=== PATIENT | male | born 1945 | race Two or more races ===

== ENCOUNTER 2020-12-20 14:25 | Outpatient (REF) | payer MEDICARE, SELFPAY ==
[2020-12-20 15:25] LABS: MANUAL DIFF FLAG NO
[2020-12-20 15:29] LABS: Basophils Percent Auto 0.5 % (0-2); Eosinophils Absolute Auto 0.2 X10*3/uL (0.0-0.4); Eosinophils Percent Auto 3.4 % (0-4); Hematocrit 35.6 % (42-52); Hemoglobin 12.5 g/dl (14.0-18.0); Imm Gran Abs Auto 0.02 X10*3/uL (0.00-0.03); Imm Gran Pct Auto 0.3 % (0.0-0.4); Lymphocytes Absolute Auto 2.4 X10*3/uL (1.2-4.9); Lymphocytes Percent Auto 38.7 % (20-40); Mean Corpuscular HGB Conc 35.1 g/dl (31.0-36.0); Mean Corpuscular Hemoglobin 33.1 pg (27.0-33.0); Mean Corpuscular Volume 94.2 fL (80-98); Mean Platelet Volume 9.5 fL (9.4-12.4); Monocytes Absolute Auto 0.9 X10*3/uL (0.1-1.2); Monocytes Percent Auto 13.8 % (2-11); Neutrophils Absolute Auto 2.7 X10*3/uL (2.0-8.3); Neutrophils Percent Auto 43.3 % (45-73); Platelet Count 208 X10*3/uL (160-400); Red Blood Count 3.78 X10*6/uL (4.60-5.80); Red Cell Distribution Width 12.4 % (11.0-16.0); White Blood Count 6.2 X10*3/uL (4.8-10.8)
[2020-12-20 16:13] LABS: Alanine Aminotransferase 30 U/L (0-40); Albumin Level 4.1 g/dL (3.5-5.0); Alkaline Phosphatase 110 U/L (39-117); Anion Gap 14 (12-20); Aspartate Amino Transferase 55 U/L (5-37); Blood Urea Nitrogen 19 mg/dL (9-16); Calcium 9.5 mg/dL (8.4-10.2); Carbon Dioxide 22 mmol/L (22-29); Chloride 110 mmol/L (96-108); Estimated Glomerular Filt Rate > 60; Glucose Random 64 mg/dL (60-115); Iron 130 mcg/dL (45-160); Percent Iron Saturation 48 % (15-50); Potassium 4.5 mmol/L (3.3-5.1); Sodium 141 mmol/L (135-145); Total Iron Binding Capacity 270 mcg/dL (228-428); Unsaturated Iron Binding 140 ug/dL
[2020-12-20 16:34] LABS: Ferritin 188 ng/mL (20-250); Thyroid Stimulating Hormone 0.03 uIU/mL (0.32-4.0)
== END 2020-12-20 14:26 | disposition home or self-care (01) ==
LOC: HO.LAB 14:25
PROVIDERS: PCP Internal Medicine; Referring Provider Internal Medicine; Visit Provider Physician Assistant
DX: R10.11 Right upper quadrant pain (principal); D64.9 Anemia, unspecified; K59.09 Other constipation; K62.5 Hemorrhage of anus and rectum; R19.5 Other fecal abnormalities; K64.9 Unspecified hemorrhoids; K21.9 Gastro-esophageal reflux disease without esophagitis; F10.10 Alcohol abuse, uncomplicated
CPT/HCPCS: 36415; 80053; 82378; 82728; 83540; 84443; 85025; 99202

== ENCOUNTER → 2021-10-17 11:36 | Outpatient (BNVA) | payer MEDICARE, SELFPAY | PROVIDERS: PCP Nurse Practitioner Primary Care; Visit Provider Internal Medicine | DX: E05.90 Thyrotoxicosis, unspecified without thyrotoxic crisis or storm (principal) | CPT/HCPCS: Q3014 ==

== ENCOUNTER 2021-10-18 15:54 | Outpatient (REF) | payer MEDICARE, SELFPAY ==
[2021-10-18 17:08] LABS: Free T4 (Free Thyroxine) 1.09 ng/dL (0.71-1.85); Thyroid Stimulating Hormone 0.01 uIU/mL (0.32-4.0)
[2021-10-19 22:27] LABS: Triiodothyronine T3 Total 148 ng/dL (76-181)
[2021-10-21 17:26] LABS: Thyroid Peroxidase Antibodies 13 IU/mL (<9)
[2021-10-22 02:57] LABS: Thyroglobulin Antibodies 3 IU/mL (< or = 1)
[2021-10-23 15:02] LABS: Thyroid Stimulating Immunoglob <89 % baseline (<140)
[2021-10-24 19:16] LABS: Thyrotropin Receptor Antibody 1.76 IU/L (<=2.00)
== END 2021-10-18 15:55 | disposition home or self-care (01) ==
LOC: HO.LAB 15:54
PROVIDERS: PCP Internal Medicine; Visit Provider Internal Medicine
DX: E05.90 Thyrotoxicosis, unspecified without thyrotoxic crisis or storm (principal)
CPT/HCPCS: 36415; 83520; 84439; 84443; 84445; 84480; 86376; 86800

== ENCOUNTER 2022-05-16 11:36 | Outpatient (REF) | payer OTHER, SELFPAY ==
--- NOTE | ~2022-05-16 | CT_ITS ---
EXAMINATION: CT INTERNAL AUDITORY CANALS WITH CONTRAST CLINICAL INFORMATION: 77-year-old with jaw pain. COMPARISON: None TECHNIQUE: Volumetric multidetector CT imaging of the temporal bones was performed following the administration of 85 mL of Omnipaque 350 intravenous contrast with 2-D multiplanar reformatted reconstructions. This CT examination was performed using dose optimization techniques as appropriate, variously including the following: *Automated exposure control *Adjustment of mA and/or kV according to patient size (this includes techniques or standardized protocols for targeted exams where dose is matched to indication/reason for exam; i.e. extremities or head) *Use of iterative reconstruction technique DLP: 134 mGy-cm FINDINGS: Right Temporal Bone: There is complete opacification of the right mastoid, including the mastoid antrum. There are foci of radiolucency within the tegmen tympani and tegmen mastoideum, with the largest of these measuring 4 mm. These most likely reflect foci of inflammatory deossification and/or erosion. Cannot exclude dehiscence and therefore an encephalocele cannot be excluded. The scutum may be slightly eroded. There is near-complete opacification of the middle ear cavity. The body of the incus, head and neck of the malleus are visualized. The manubrium of the malleus, long process of incus and stapes are not visualized and may be eroded. The floor of the tympanic segment of the facial nerve canal is not visualized and may be dehiscent or eroded. Otherwise, the otic capsule appears grossly intact. There is a normal appearance to the oval window. The tympanic membrane is not visualized. Soft tissue opacity extends lateral to the expected plane of the TM. The above findings could reflect a cholesteatoma with associated otomastoid inflammatory disease. The cochlea and vestibular labyrinthine structures, IAC and vestibular aqueduct appear intact and within normal limits. There is a high jugular bulb with possible focal jugular plate dehiscence along the posterior wall of the tympanic annulus. Left Temporal Bone: Mastoid portion of the left temporal bone is well pneumatized and clear, with grossly intact bony ayala. The EAC is patent and normal in caliber. Tympanic membrane appears grossly intact. Middle ear cavity is unopacified. The ossicular chain is structurally within normal limits and appears intact. The oval window is normal. The otic capsule appears grossly intact. The cochlear and vestibular labyrinthine structures, IAC and vestibular aqueduct are within normal limits. CT IACs: The internal auditory canals demonstrate no definite enhancing mass lesion on either side. The visualized cerebellopontine angle cisterns demonstrate no definite mass lesion or abnormal enhancement. The remainder of the visualized intracranial structures demonstrate no acute process. There is normal opacification of the visualized major dural venous sinuses. The visualized extracranial soft tissue structures demonstrate asymmetry of the parotid glands, with the appearance of a large mass involving the superficial and deep lobes of the right parotid gland, measuring approximately 4 cm greatest transverse dimension. MRI of the soft tissue neck without and with contrast recommended to further assess this. CT/CT internal auditory canals BI IMPRESSION: 1. Large enhancing mass in the right parotid gland as discussed above, highly suspicious for a parotid neoplasm. MRI of the soft tissue neck without and with contrast is recommended to further assess this in addition to ENT consult. 2. Findings in the right temporal bone are consistent with otomastoiditis, with multiple erosions. Cannot exclude cholesteatoma. Cannot exclude dehiscence of the tegmen tympani/tegmen mastoideum. Thin section high-resolution T2-weighted imaging through this region can be added to the recommended MRI to further assess this if clinically warranted. Recommend that this be specifically requested in the order for the MRI if clinically warranted. 3. High jugular bulb on the right with a small dehiscence in the jugular plate. The [facility] staff will call to confirm receipt of this report with acknowledgement of the findings and any recommendations.
[2022-05-16] MEDS: iohexoL 350 MG/ML 100 ML INFUS..BTL 85 ML IV (13:01)
== END 2022-05-16 11:37 | disposition home or self-care (01) ==
LOC: HO.CT 11:36
PROVIDERS: PCP Internal Medicine; Visit Provider Internal Medicine
DX: R68.84 Jaw pain (principal); R22.0 Localized swelling, mass and lump, head; H70.001 Acute mastoiditis without complications, right ear; H66.91 Otitis media, unspecified, right ear
CPT/HCPCS: 70480; Q9967

== ENCOUNTER 2022-05-28 11:04 | Outpatient (REF) | payer OTHER, SELFPAY ==
--- NOTE | ~2022-05-28 | MR_ITS ---
EXAMINATION: MRI NECK WITHOUT AND WITH CONTRAST CLINICAL INFORMATION: Mass of right parotid gland. COMPARISON: CT temporal bones 05/16/2022. TECHNIQUE: Multiplanar multisequence MRI of the neck was performed without and with contrast. A total of 5.5 mL Gadavist was intravenously administered. FINDINGS: There is a heterogeneous multilobulated enhancing mass involving the superficial and deep lobe of the right parotid gland measuring up to 3.8 x 3.0 x 2.6 cm. The lesion appears thinly encapsulated. The deep aspect of the lesion partly deforms the parapharyngeal fat without causing displacement. No definite erosion is seen involving the mandibular ramus in the region where it contacts the lesion. The left parotid gland appears normal. The bilateral submandibular glands appear normal. No enlarged cervical chain lymph nodes are seen. Incidentally noted is opacification of the right mastoid and middle ear cavity, better defined on the recent CT. The pharyngeal and laryngeal contours appear normal. The cervical spine is intact with minimal degenerative changes noted. No acute intracranial abnormality is seen. The major arterial flow voids are preserved at the skull base. A small amount of fluid in left mastoid. Orbital contents are unremarkable. MR/MR orbits face neck wo/w con IMPRESSION: Heterogeneously enhancing multilobulated mass involving the superficial and deep lobe of the right parotid gland measuring up to 3.8 cm. This parotid lesion may represent a Warthin's tumor although benign or low-grade malignant salivary epithelial neoplasm can have a similar appearance. If not already performed ENT evaluation and possible fine needle aspiration sampling under ultrasound guidance could be considered. No cervical chain lymphadenopathy is seen.
== END 2022-05-28 11:05 | disposition home or self-care (01) ==
LOC: HO.MRI 11:04
PROVIDERS: PCP Internal Medicine; Visit Provider Internal Medicine
DX: K11.8 Other diseases of salivary glands (principal)
CPT/HCPCS: 70543; A9585

== ENCOUNTER 2022-06-04 12:13 | Outpatient (REF) | payer OTHER, SELFPAY ==
--- NOTE | ~2022-06-04 | XR_ITS ---
EXAMINATION: XR shoulder RT min 2V CLINICAL INFORMATION: Reason for Exam RIGHT SHOULDER PAIN COMPARISON: None TECHNIQUE: Four views of the shoulder. FINDINGS: No acute fracture or dislocation. Mild degenerative changes of the acromioclavicular joint with degenerative spurring. Soft tissues are unremarkable. XR/XR shoulder RT min 2V IMPRESSION: * Mild degenerative changes of the shoulder.
== END 2022-06-04 12:14 | disposition home or self-care (01) ==
LOC: HO.XRAY 12:13
PROVIDERS: PCP Internal Medicine; Visit Provider Internal Medicine
DX: M25.511 Pain in right shoulder (principal)
CPT/HCPCS: 73030

== ENCOUNTER 2022-07-07 14:50 | Outpatient (REF) | payer OTHER, SELFPAY ==
--- NOTE | ~2022-07-07 | US_ITS ---
EXAMINATION: US THYROID CLINICAL INFORMATION: Thyrotoxicosis, unspecified without thyrotoxic crisis or storm. COMPARISON: MRI neck 05/28/2022. Thyroid ultrasound 10/11/2018. MRA neck 02/08/2007. TECHNIQUE: Linear transducer grayscale and color Doppler examination with attention to the region of the thyroid. FINDINGS: SIZE: Measurements of the thyroid lobes and nodules are given in sagittal, anteroposterior and transverse dimensions respectively. Right Thyroid Lobe: 3.6 x 1.4 x 1.3 cm, volume 3.4 mL. Previously 4.4 x 1.4 x 1.3 cm, volume 4.3 mL. Parenchyma: The gland echotexture is heterogeneous. Thyroid vascularity is increased. Left Thyroid Lobe: 3.5 x 1.4 x 1.4 cm, volume 3.6 mL. Previously 3.7 x 1.4 x 1.2 cm, volume 3.4 mL. Parenchyma: The gland echotexture is heterogeneous. Thyroid vascularity is increased. Isthmus: 0.1 cm in maximum AP dimension. Previously 0.1 cm. No focal thyroid nodule is seen. NODES: No lymphadenopathy is seen in the tissue surrounding the thyroid gland. US/US thyroid IMPRESSION: Slightly heterogeneous and hypervascular thyroid lobes but no new nodules seen. No abnormal lymph nodes either. ACR TI-RADS RECOMMENDATION REFERENCE: Ultrasound-guided fine-needle aspiration, followup ultrasound, no further follow up. * TR1 (0 point) and TR2 (2 points): No FNA or follow up * TR3 (3 points): FNA if more than or equal to 2.5 cm in maximum dimension, followup ultrasound in 1, 3 and 5 years if 1.5 to 2.4 cm in maximum dimension. * TR4 (4-6 points): FNA if more than or equal to 1.5 cm in maximum dimension, followup ultrasound in 1, 2, 3 and 5 years if 1 to 1.4 cm in maximum dimension. * TR5 (more than or equal to 7 points): FNA if more than or equal to 1 cm in maximum dimension, followup ultrasound every year for 5 years if 0.5 to 0.9 cm in maximum dimension. * TR3, TR4 or TR5 nodules that are below the size threshold for follow up receive no follow up.
== END 2022-07-07 14:51 | disposition home or self-care (01) ==
LOC: HO.US 14:50
PROVIDERS: PCP Internal Medicine; Visit Provider Internal Medicine
DX: E05.90 Thyrotoxicosis, unspecified without thyrotoxic crisis or storm (principal)
CPT/HCPCS: 76536

== ENCOUNTER → 2022-07-17 10:04 | Outpatient (REF) | payer OTHER, SELFPAY ==
--- NOTE | ~2022-07-17 | NM_ITS ---
EXAMINATION: THYROID UPTAKE AND SCAN CLINICAL INFORMATION: Hyperthyroidism. COMPARISON: Prior thyroid scan and radioiodine uptake study done on 10/13/2018. Thyroid ultrasound done on 07/07/2022. TECHNIQUE: Following the oral administration of 273 microcuries of I-123 sodium iodide, thyroid uptake was performed and expressed as a percentage of the administrated dose. Gamma scintillation camera images of the thyroid in the anterior and right and left anterior oblique views were obtained using a pinhole collimator following the administration of 10 mCi Tc-99m pertechnetate. FINDINGS: The uptake is 4.09% at 4 hours, 3.1% on the prior study and 14.0% at 24 hours, 15.2% on the prior study (Normal radioiodine uptake at 24 hours is 10% to 30%). The radioiodine uptake is normal. The radiopertechnetate thyroid scintigram demonstrates the thyroid gland to be normal in size, shape, and position. There is slight heterogeneous distribution of activity within the the gland with no focal abnormalities noted. The trapping function appears normal. NM/NM thyroid w uptake IMPRESSION: 1. Normal radioiodine uptake, unchanged since prior study dated 10/13/2018. 2. Persistent stable mild heterogeneous radiotracer distribution throughout both thyroid gland without any significant change since the prior study dated 10/13/2018, considered within normal range, concordant with recent thyroid ultrasound done on 07/07/2022.
== END ==
LOC: HO.NUCMED 10:04
PROVIDERS: PCP Internal Medicine; Visit Provider Internal Medicine
DX: E05.90 Thyrotoxicosis, unspecified without thyrotoxic crisis or storm (principal)
CPT/HCPCS: 78014; A9512; A9516

== ENCOUNTER 2022-07-25 13:17 | Outpatient (REF) | payer OTHER, SELFPAY ==
[2022-07-25 14:46] LABS: Free T4 (Free Thyroxine) 1.14 ng/dL (0.71-1.85); Thyroid Stimulating Hormone < 0.01 uIU/mL (0.32-4.0)
[2022-07-26 19:54] LABS: Triiodothyronine T3 Total 178 ng/dL (76-181)
== END 2022-07-25 13:18 | disposition home or self-care (01) ==
LOC: HO.LAB 13:17
PROVIDERS: PCP Internal Medicine; Visit Provider Internal Medicine
DX: E05.90 Thyrotoxicosis, unspecified without thyrotoxic crisis or storm (principal)
CPT/HCPCS: 36415; 84439; 84443; 84480

== ENCOUNTER 2022-08-18 15:36 | Outpatient (REF) | payer MEDICARE, SELFPAY ==
[2022-08-18 17:24] LABS: Free T4 (Free Thyroxine) 1.03 ng/dL (0.71-1.85)
[2022-08-19 08:53] LABS: Triiodothyronine T3 Total 161 ng/dL (76-181)
== END 2022-08-18 15:37 | disposition home or self-care (01) ==
LOC: HO.LAB 15:36
PROVIDERS: PCP Internal Medicine; Visit Provider Internal Medicine
DX: E05.90 Thyrotoxicosis, unspecified without thyrotoxic crisis or storm (principal)
CPT/HCPCS: 36415; 84439; 84480

== ENCOUNTER 2022-09-15 13:45 | Outpatient (REF) | payer MEDICARE, SELFPAY ==
[2022-09-15 16:45] LABS: Free T4 (Free Thyroxine) 1.06 ng/dL (0.71-1.85); Thyroid Stimulating Hormone < 0.01 uIU/mL (0.32-4.0)
[2022-09-17 04:03] LABS: Triiodothyronine T3 Total 157 ng/dL (76-181)
== END 2022-09-15 13:46 | disposition home or self-care (01) ==
LOC: HO.LAB 13:45
PROVIDERS: Visit Provider Internal Medicine
DX: E05.90 Thyrotoxicosis, unspecified without thyrotoxic crisis or storm (principal)
CPT/HCPCS: 36415; 84439; 84443; 84480; 99212

== ENCOUNTER 2022-12-09 12:37 | Outpatient (REF) | payer MEDICARE, SELFPAY ==
[2022-12-09 14:47] LABS: Free T4 (Free Thyroxine) 0.94 ng/dL (0.71-1.85); Thyroid Stimulating Hormone 0.01 uIU/mL (0.32-4.0)
[2022-12-10 07:49] LABS: Triiodothyronine T3 Total 164 ng/dL (76-181)
== END 2022-12-09 12:38 | disposition home or self-care (01) ==
LOC: HO.LAB 12:37
PROVIDERS: PCP Internal Medicine; Visit Provider Internal Medicine
DX: E05.90 Thyrotoxicosis, unspecified without thyrotoxic crisis or storm (principal)
CPT/HCPCS: 36415; 84439; 84443; 84480

== ENCOUNTER 2023-03-23 16:10 | Outpatient (AMB) | payer MEDICARE, SELFPAY ==
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
[2023-03-23 16:13] VITALS: BP 134/58; PULSE 63; BMI 23.8
== END 2023-03-23 16:38 | disposition home or self-care (01) ==
PROVIDERS: PCP Internal Medicine; Visit Provider Internal Medicine Endocrinology, Diabetes & Metabolism
DX: E05.90 Thyrotoxicosis, unspecified without thyrotoxic crisis or storm (principal)
CPT/HCPCS: 99213

== ENCOUNTER → 2023-03-23 16:10 | Outpatient (BNVA) | payer MEDICARE, SELFPAY | PROVIDERS: PCP Internal Medicine; Visit Provider Internal Medicine Endocrinology, Diabetes & Metabolism | DX: E05.90 Thyrotoxicosis, unspecified without thyrotoxic crisis or storm (principal); E89.0 Postprocedural hypothyroidism | CPT/HCPCS: 99212 ==

== ENCOUNTER 2023-03-25 12:56 | Outpatient (REF) | payer MEDICARE, SELFPAY ==
[2023-03-25 13:08] LABS: MANUAL DIFF FLAG NO
[2023-03-25 14:02] LABS: Basophils Percent Auto 0.5 % (0-2); Eosinophils Absolute Auto 0.1 X10*3/uL (0.0-0.4); Eosinophils Percent Auto 1.9 % (0-4); Hematocrit 40.2 % (42.0-52.0); Hemoglobin 14.1 g/dl (14.0-18.0); Imm Gran Abs Auto 0.01 X10*3/uL (0.00-0.03); Imm Gran Pct Auto 0.2 % (0.0-0.4); Lymphocytes Absolute Auto 1.7 X10*3/uL (1.2-4.9); Lymphocytes Percent Auto 29.2 % (20-40); Mean Corpuscular HGB Conc 35.1 g/dl (31.0-36.0); Mean Corpuscular Volume 94.1 fL (80.0-98.0); Mean Platelet Volume 10.6 fL (9.4-12.4); Monocytes Absolute Auto 0.6 X10*3/uL (0.1-1.2); Monocytes Percent Auto 9.6 % (2-11); Neutrophils Absolute Auto 3.4 x10*3/uL (2.0-8.3); Neutrophils Percent Auto 58.6 % (45-73); Platelet Count 211 X10*3/uL (160-400); Red Blood Count 4.27 X10*6/uL (4.60-5.80); Red Cell Distribution Width 13.3 % (11.0-16.0); White Blood Count 5.9 X10*3/uL (4.8-10.8)
[2023-03-25 14:45] LABS: Alanine Aminotransferase 53 U/L (0-40); Albumin Level 3.8 g/dL (3.5-5.0); Alkaline Phosphatase 268 U/L (39-117); Aspartate Amino Transferase 118 U/L (5-37); Bilirubin Direct 0.8 mg/dL (0.0-0.5); Bilirubin Total 1.3 mg/dL (0.0-1.0); Total Protein 8.4 g/dL (6.5-8.0)
[2023-03-25 14:51] LABS: Free T4 (Free Thyroxine) 0.86 ng/dL (0.71-1.85); Thyroid Stimulating Hormone 0.15 uIU/mL (0.32-4.0)
[2023-03-26 10:03] LABS: Triiodothyronine T3 Free 3.9 pg/mL (2.3-4.2)
== END 2023-03-25 12:57 | disposition home or self-care (01) ==
LOC: HO.LAB 12:56
PROVIDERS: PCP Internal Medicine; Visit Provider Internal Medicine Endocrinology, Diabetes & Metabolism
DX: E05.90 Thyrotoxicosis, unspecified without thyrotoxic crisis or storm (principal)
CPT/HCPCS: 36415; 80076; 84439; 84443; 84481; 85025

== ENCOUNTER 2023-04-01 13:29 | Outpatient (REF) | payer MEDICARE, SELFPAY ==
--- NOTE | ~2023-04-01 | MR_ITS ---
EXAMINATION: MR SOFT TISSUE NECK WITHOUT AND WITH CONTRAST CLINICAL INFORMATION: Follow up right parotid mass. COMPARISON: 05/28/2022 MRI. TECHNIQUE: MRI of the soft tissue neck was obtained using routine sequences without and with contrast. Intravenous contrast: Gadavist 6 mL. (Note that coronal T1-weighted imaging pre- and postcontrast was not performed on this exam which somewhat limits the exam. The DWI sequence is also marred by artifact.) FINDINGS: Redemonstrated is a well-circumscribed, lobulated soft tissue mass within the right parotid gland which spans the superficial and deep lobes of the gland. This measures 3.6 cm in greatest craniocaudal dimension in the sagittal plane, stable in appearance with maximum transaxial dimensions of 3.4 x 2.2 cm, largely stable in appearance compared to previous study. The mass is noted to be heterogeneously T2 hyperintense on T2 fat-sat imaging, similar to the previous study with a few small foci of signal loss at its posteromedial aspect, similar to prior exam. The mass enhances fairly avidly and mostly homogenously, grossly unchanged. There is mild encroachment on the lateral aspect of the right parapharyngeal fat stripe which is unchanged. Left parotid gland appears normal in morphology and signal intensity. The submandibular glands are normal in morphology and enhance normally. No enlarged lymph nodes are seen along the cervical chains. Redemonstrated is fluid signal within the right mastoid and middle ear cavity, unchanged. There is limited assessment of the intracranial compartment. There is enhancement of soft tissue within the right mastoid, unchanged. No definite abnormal intracranial enhancement is seen. The nasopharynx, retropharynx, web merchant, and parapharyngeal spaces appear otherwise unremarkable with a normal appearance to the oropharynx, tongue and floor of the mouth structures. The hypopharynx and larynx appear grossly within normal limits. Visualized thyroid gland is not enlarged. Visualized upper thorax is grossly unremarkable. Normal signal voids are seen within the major arterial and venous structures in the neck. MR/MR orbits face neck wo/w con IMPRESSION: 1. Stable appearance to the right parotid gland mass, as described above. Differential diagnostic considerations again would include a Warthin's tumor, but a malignant salivary gland tumor cannot be excluded. Recommend tissue sampling and ENT follow-up. 2. No enlarged cervical lymph nodes. No definite abnormal intracranial enhancement is seen. 3. Stable enhancing fluid signal in the right mastoid and middle ear cavity. Correlate for clinical otologic disease on the right.
[2023-04-01] MEDS: gadobutroL 7.5 ML VIAL IVPUSH (14:39)
== END 2023-04-01 13:30 | disposition home or self-care (01) ==
LOC: HO.MRI 13:29
PROVIDERS: Visit Provider Internal Medicine
DX: R22.0 Localized swelling, mass and lump, head (principal); K11.8 Other diseases of salivary glands
CPT/HCPCS: 70543; A9585

== ENCOUNTER 2023-07-14 18:40 | Inpatient (IN) | payer MEDICARE, SELFPAY ==
--- NOTE | ~2023-07-14 | CT_ITS ---
EXAMINATION: CT ABDOMEN AND PELVIS WITH CONTRAST CLINICAL INFORMATION: Abdominal pain. Jaundice. COMPARISON: None available. TECHNIQUE: Multidetector volumetric images were obtained from the superior aspect of the liver through the pubic symphysis following administration 85 mL of Omnipaque 350 intravenous contrast. Sagittal and coronal reformatted images were obtained on the technologist's workstation. Oral contrast: No This CT examination was performed using dose optimization techniques as appropriate, variously including the following: *Automated exposure control *Adjustment of mA and/or kV according to patient size (this includes techniques or standardized protocols for targeted exams where dose is matched to indication/reason for exam; i.e. extremities or head) *Use of iterative reconstruction technique DLP: 373 mGy-cm FINDINGS: LUNG BASES: The visualized lung bases are unremarkable. LIVER, GALLBLADDER, AND BILIARY TREE: The liver is significantly irregular in contour with a small right lobe. No focal liver lesions are seen. There is no intrahepatic biliary duct dilatation. The gallbladder is unremarkable with no evidence of radiopaque gallstones, gallbladder wall thickening, or obvious pericholecystic inflammatory changes. PANCREAS: Unremarkable. SPLEEN: A few splenic calcifications are noted. ADRENAL GLANDS: Unremarkable. KIDNEYS AND URETERS: The kidneys are normal in size, shape, and attenuation. No hydronephrosis, hydroureter, or calculi seen. No perinephric stranding. There is a 3.1 cm cyst mid to lower pole left kidney. There is a 1.5 cm cyst mid to upper pole left kidney. BLADDER: There is a 2.8 cm stellate bladder calcification. There is also a 6 mm calcification. GASTROINTESTINAL TRACT: There are a few diverticula of the sigmoid colon without diverticulitis. The appendix is normal in appearance. ABDOMINAL WALL: No significant hernia is appreciated. LYMPH NODES: Normal. VASCULAR: Splenic, perigastric and pelvic varices are noted. PELVIC VISCERA: Unremarkable. FLUID: There is small volume upper abdominal as well as pelvic ascites. OSSEOUS STRUCTURES: Unremarkable. CT/CT abdomen pelvis w IV con IMPRESSION: 1. Cirrhotic liver with evidence of portal hypertension including splenic, perigastric and pelvic varices. There is small volume ascites. 2. There is a 2.8 cm stellate bladder calcification. There is also a 6 mm calcification. Fleischner guidelines were followed.
--- NOTE | ~2023-07-14 | US_ITS ---
Ultrasound-guided liver biopsy History: Elevated LFTs Procedure: Ultrasound-guided liver biopsy Risks and benefits and possible complications were discussed with the patient and consent form was signed. The abdomen was prepped and draped in usual sterile fashion. 1% lidocaine was used for anesthesia. A 17-gauge coaxial needle was inserted through the skin and soft tissues and into the left lower of the liver. A total of 3, 18-gauge cores were performed. Permanent ultrasound images were archived. 2 Gelfoam torpedoes were inserted through the coaxial and administered into the biopsy tract and at the level of the capsule. The needle was then removed. The specimens were placed in formalin and sent to pathology. The patient tolerated the procedure well. The procedure was performed under moderate sedation with a dedicated nurse for monitoring of vital signs. The patient received a total of 2 Versed, and 100 Fentanyl. Moderate sedation time: 44 min This procedure was performed by Luis Velazquez PA-C, and directly supervised by Dr. Veloz. US/US biopsy liver Impression: Ultrasound-guided liver biopsy
[2023-07-14 19:12] VITALS: BP 136/57; PULSE 66; RESP 18; TEMP 36.5; O2SAT 99; BMI 23.0
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
[2023-07-14 19:45] LABS: Basophils Percent Auto 0.3 % (0-2); Eosinophils Absolute Auto 0.1 X10*3/uL (0.0-0.4); Eosinophils Percent Auto 0.6 % (0-4); Hematocrit 34.6 % (42.0-52.0); Hemoglobin 12.3 g/dl (14.0-18.0); Imm Gran Abs Auto 0.02 X10*3/uL (0.00-0.03); Imm Gran Pct Auto 0.2 % (0.0-0.4); Lymphocytes Absolute Auto 1.8 X10*3/uL (1.2-4.9); Lymphocytes Percent Auto 17.6 % (20-40); Mean Corpuscular HGB Conc 35.5 g/dl (31.0-36.0); Mean Corpuscular Hemoglobin 33.2 pg (27.0-33.0); Mean Corpuscular Volume 93.5 fL (80.0-98.0); Mean Platelet Volume 9.8 fL (9.4-12.4); Monocytes Absolute Auto 0.8 X10*3/uL (0.1-1.2); Monocytes Percent Auto 7.8 % (2-11); Neutrophils Absolute Auto 7.4 x10*3/uL (2.0-8.3); Neutrophils Percent Auto 73.5 % (45-73); Platelet Count 336 X10*3/uL (160-400); Red Cell Distribution Width 18.8 % (11.0-16.0); White Blood Count 10.1 X10*3/uL (4.8-10.8)
[2023-07-14 19:46] LABS: MANUAL DIFF FLAG NO
--- NOTE | 2023-07-14 19:52 | MHC.EDTECH ---
PATIENT BLOOD DRAWN AND SENT TO LAB ,PATIENT NOT ABLE TO GIVE URINE SAMPLE AT THIS TIME .
[2023-07-14 20:01] LABS: Alanine Aminotransferase 159 U/L (0-40); Albumin Level 2.6 g/dL (3.5-5.0); Alkaline Phosphatase 463 U/L (39-117); Anion Gap 15 (12-20); Aspartate Amino Transferase 405 U/L (5-37); Bilirubin Direct 7.7 mg/dL (0.0-0.5); Bilirubin Total 9.6 mg/dL (0.0-1.0); Blood Urea Nitrogen 14 mg/dL (9-16); Calcium 8.7 mg/dL (8.4-10.2); Carbon Dioxide 22 mmol/L (22-29); Chloride 103 mmol/L (96-108); Creatinine Clr Calc Pharmacy 51.8; Estimated Glomerular Filt Rate > 60; Glucose Random 121 mg/dL (60-115); Lipase 33 U/L (8-78); Magnesium 1.9 mg/dL (1.6-2.6); Potassium 4.2 mmol/L (3.3-5.1); Sodium 136 mmol/L (135-145); Total Protein 7.7 g/dL (6.5-8.0)
[2023-07-14 23:27] VITALS: BP 127/60; PULSE 63; RESP 16; TEMP 36.9; O2SAT 98
--- NOTE | 2023-07-14 23:31 | MHC.EDTECH ---
PATIENT WAS CALL TO TRIAGE TO REASSESS ,VITALS TAKEN .
--- NOTE | 2023-07-14 23:31 | MHC.EDTECH ---
PATIENT STILL NOT ABLE TO GIVE URINE SAMPLE .
[2023-07-14 23:56] LABS: Appearance Urine Cloudy; Color Urine Dark Yellow; Glucose Urine UA Negative (Negative); Leukocyte Esterase Urine Small (1+) (Negative); Nitrite Urine Positive (Negative); PH 5.5 (5.0-9.0); UMIC TRIGGER UACC YES; Urine Blood Negative (Negative); Urine Ketones Negative (Negative); Urine Protein Trace mg/dL (Neg-Trace)
[2023-07-15 00:18] LABS: Bacteria Urine None Seen (None Seen); Hyaline Casts Urine 0-2 /LPF (0-2); UACC Culture Trigger YES; WBC Urine 0-5 /HPF (0-5)
[2023-07-15 00:23] LABS: RBC Urine 0-2 /HPF (0-2)
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
[2023-07-15 01:49] LABS: INTERNATIONAL NORM RATIO 1.9 (0.9-1.1); Prothrombin Time 23.7 SEC (11.1-13.3)
[2023-07-15] MEDS: iohexoL 350 MG/ML 100 ML INFUS..BTL 85 ML IV (01:50)
[2023-07-15 01:55] LABS: Ammonia 47 umol/L (13-55)
[2023-07-15 02:14] LABS: Acetaminophen LAB < 3 mcg/mL (<30)
[2023-07-15 02:46] VITALS: BP 133/54; PULSE 75; RESP 18; TEMP 36.4; O2SAT 98
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
[2023-07-15] MEDS: methylPREDNISolone Sod Succ 40 MG/ML VIAL 32 MG IVPUSH (06:44)
[2023-07-15] MEDS: Lactulose 20 GM/30 ML SOLUTION PO ×4 (06:44→21:21)
[2023-07-15] MEDS: Pantoprazole Sodium 40 MG/10 ML VIAL IVPUSH (06:44)
[2023-07-15] MEDS: Thiamine HCL 200 MG in 0.9 % Sodium Chloride 100 ML 204 MG IV (06:45)
[2023-07-15] MEDS: 0.9 % Sodium Chloride 250 ML 999 ML IV (06:48)
[2023-07-15 07:10] LABS: Hematocrit 34.7 % (42.0-52.0); Hemoglobin 12.4 g/dl (14.0-18.0); Mean Corpuscular HGB Conc 35.7 g/dl (31.0-36.0); Mean Corpuscular Hemoglobin 33.2 pg (27.0-33.0); Mean Corpuscular Volume 92.8 fL (80.0-98.0); Mean Platelet Volume 9.8 fL (9.4-12.4); Platelet Count 351 X10*3/uL (160-400); Red Blood Count 3.74 X10*6/uL (4.60-5.80); Red Cell Distribution Width 18.6 % (11.0-16.0)
[2023-07-15 07:23] VITALS: BP 124/61; PULSE 70; RESP 16; TEMP 36.6; O2SAT 97
--- NOTE | 2023-07-15 07:29 | PC.NURSE ---
Medication administration delayed due to t/w providing care to other patients.
[2023-07-15 07:39] LABS: HBS Num1 2.31 mIU/mL (0-7.99); HBc Num1 0.55 S/CO (0.00-0.79); HBsAGNum1 0.41 S/CO (0.00-0.99); Hepatitis B Core Antibody Nonreactive (Nonreactive); Hepatitis B Surface Antigen Negative (Negative); ~HepC Num1 0.44 S/CO (0.00-0.79); ~Hepatitis B Surface Antibody NONREACTIVE (Nonreactive); ~Hepatitis C Antibody Nonreactive (Nonreactive)
[2023-07-15 07:39] LABS: Alanine Aminotransferase 161 U/L (0-40); Albumin Level 2.6 g/dL (3.5-5.0); Alkaline Phosphatase 467 U/L (39-117); Anion Gap 15 (12-20); Aspartate Amino Transferase 407 U/L (5-37); Bilirubin Total 9.4 mg/dL (0.0-1.0); Blood Urea Nitrogen 13 mg/dL (9-16); Calcium 8.5 mg/dL (8.4-10.2); Carbon Dioxide 21 mmol/L (22-29); Chloride 103 mmol/L (96-108); Creatinine Clr Calc Pharmacy 56.6; Estimated Glomerular Filt Rate > 60; Glucose Random 84 mg/dL (60-115); Potassium 4.2 mmol/L (3.3-5.1); Sodium 135 mmol/L (135-145); Total Protein 7.4 g/dL (6.5-8.0)
[2023-07-15 07:47] LABS: Thyroid Stimulating Hormone 0.94 uIU/mL (0.32-4.0)
[2023-07-15] MEDS: 0.9 % Sodium Chloride Flush 3 ML SYRINGE IVFLUSH ×2 (07:50→21:21)
[2023-07-15] MEDS: Enoxaparin Sodium 40 MG/0.4 ML SYRINGE SUBCUT (09:41)
[2023-07-15 09:56] VITALS: BP 115/60; PULSE 71; RESP 16; TEMP 36.6; O2SAT 98
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
--- NOTE | 2023-07-15 10:48 | PHA.MEDREC ---
Pharmacy Consult ? Medication Reconciliation Pharmacy has completed the medication reconciliation Spoke with patient with manganese breaker to confirm medications.
[2023-07-15 12:20] LABS: Ferritin 759 ng/mL (20-250)
[2023-07-15 13:07] VITALS: BP 127/56; PULSE 71; RESP 16; TEMP 36.5; O2SAT 97
--- NOTE | 2023-07-15 13:18 | PM.EVENT ---
Event Note Date of Service: 07/15/23 Event Note: Seen and evaluated this morning Feels ok overall, reporting nausea Lab work similar to admission GI input appreciated, high protein diet, Lactulose and serologies Continue Steroids monitor LFT Time Spent With Patient Time: Total time managing care of this patient today ____ minutes.
--- NOTE | 2023-07-15 14:00 | PC.NURSE ---
PT IS A/OX 3 NO SOB/RAINA NOTED SPEAKS IN FULL SENTENCES. AMB (I) GAIT STEADY TO BATHROOM AND BTB. PT HAS MADE MULTIPLE TRIPS TO THE BATHROOM DUE TO LACTULOSE SCHEDULE MED THAT HAS BEEN GIVEN. PT AWARE OF PLAN OF CARE. WILL CONTINUE TO MONITOR.
[2023-07-15 19:27] VITALS: BP 115/50; PULSE 60; RESP 18; TEMP 36.8; O2SAT 99
[2023-07-15 20:52] LABS: Gamma Glutamyl Transpeptidase 469 U/L (11-51)
[2023-07-15] MEDS: traZODone HCL 25 MG HALFTAB 12.5 MG PO (21:21)
--- NOTE | 2023-07-15 21:21 | PC.NURSE ---
Late entry: PT daughter noting concern that pt will leave due to his inability to sleep. She is requesting that PT not be allowed to leave AMA, not be allowed to call others to pick him up should he decide he wanted to leave. Explained PTs rights as he is not incapacitated to t/w knowledge, but explained that we would do our best to keep him comfortable and provide education regarding necessary treatment. T/w contact hospitalist requesting medication for sleep. Administered medication as per JUN.
[2023-07-15 21:44] VITALS: BP 126/63; PULSE 64; RESP 18; TEMP 36.8; O2SAT 98
--- NOTE | 2023-07-15 23:00 | PC.NURSE ---
late entry: PT requesting RN to keep door closed and lights off at all times. He notes he cannot sleep. T/w explained that t/w needs to provide care and have lighting to assess and medicate. PT become upset but went back to rest.
[2023-07-16] MEDS: LORazepam 1 MG TABLET PO (01:24)
[2023-07-16] MEDS: 0.9 % Sodium Chloride Flush 3 ML SYRINGE IVFLUSH ×3 (01:25→22:45)
--- NOTE | 2023-07-16 01:30 | PC.NURSE ---
T/w in room with bed 14 went pt demanded the door to be closed. continues to state that he has not slept in 7 days. t/w explained again that as there were two people in the room that it is difficult to remain silent at all times. PT medicated with lorzpam to assist in calming down and to help him rest.
[2023-07-16 05:26] VITALS: BP 105/48; PULSE 60; RESP 18; O2SAT 98
[2023-07-16 05:28] LABS: Hematocrit 27.8 % (42.0-52.0); Hemoglobin 9.9 g/dl (14.0-18.0); Mean Corpuscular HGB Conc 35.6 g/dl (31.0-36.0); Mean Corpuscular Hemoglobin 33.4 pg (27.0-33.0); Mean Corpuscular Volume 93.9 fL (80.0-98.0); Mean Platelet Volume 9.7 fL (9.4-12.4); Platelet Count 260 X10*3/uL (160-400); Red Blood Count 2.96 X10*6/uL (4.60-5.80); Red Cell Distribution Width 19.1 % (11.0-16.0); White Blood Count 9.1 X10*3/uL (4.8-10.8)
[2023-07-16 05:34] LABS: INTERNATIONAL NORM RATIO 2.3 (0.9-1.1); Prothrombin Time 27.4 SEC (11.1-13.3)
[2023-07-16 05:45] LABS: Alanine Aminotransferase 158 U/L (0-40); Albumin Level 2.2 g/dL (3.5-5.0); Alkaline Phosphatase 389 U/L (39-117); Anion Gap 14 (12-20); Aspartate Amino Transferase 403 U/L (5-37); Bilirubin Direct 5.9 mg/dL (0.0-0.5); Bilirubin Total 7.2 mg/dL (0.0-1.0); Blood Urea Nitrogen 19 mg/dL (9-16); Calcium 8.1 mg/dL (8.4-10.2); Carbon Dioxide 21 mmol/L (22-29); Chloride 110 mmol/L (96-108); Creatinine Clr Calc Pharmacy 53.1; Estimated Glomerular Filt Rate > 60; Glucose Random 67 mg/dL (60-115); Potassium 4.2 mmol/L (3.3-5.1); Sodium 141 mmol/L (135-145); Total Protein 6.3 g/dL (6.5-8.0)
[2023-07-16] MEDS: methylPREDNISolone Sod Succ 40 MG/ML VIAL 32 MG IVPUSH (06:07)
[2023-07-16] MEDS: Enoxaparin Sodium 40 MG/0.4 ML SYRINGE SUBCUT (06:08)
[2023-07-16] MEDS: Pantoprazole Sodium 40 MG/10 ML VIAL IVPUSH (06:41)
[2023-07-16 08:21] VITALS: BP 100/49; PULSE 78; RESP 16; O2SAT 94
[2023-07-16 08:43] LABS: HIV AB/AG Nonreactive (Nonreactive); HIV Num 1 0.05 S/CO (0.00-0.99)
--- NOTE | 2023-07-16 09:04 | PC.NURSE ---
Report received from Bridgette BENZ at 0705, patient agitated overnight from being repeatedly awoken. Pt appears in NAD at this time, resting comfortably on stretcher. CIWA: 0, pt reports no EtOH for >30 days. WCTA
--- NOTE | 2023-07-16 09:42 | P.PNIM_ITS ---
Subjective Subjective Date of Service: 07/16/23 Interval History: Seen and evaluated this morning feels ok, denies pain but reports nausea Bili trending down INR going up Review of Systems Review of Systems: Yes all other systems are reviewed and are negative Physical Exam 2 Vital Signs: Vital Signs: Last Vital Signs Temp 98.2 F 07/15/23 21:44 Pulse 78 07/16/23 08:21 Resp 16 07/16/23 08:21 BP 100/49 L 07/16/23 08:21 Pulse Ox 94 07/16/23 08:21 O2 Del Method Room Air 07/16/23 08:21 BMI result Body Mass Index 23.0 Const: Other: Constitutional : Awake, interactive, not in distress, mild jaundice Neck : Normal inspection, Supple Cardiovascular : RRR, no JVP, no lower extremity edema Respiratory : good bilateral air entry, no crackles, wheezes or rhonchi Gastrointestinal: soft, lax, Normal bowel sounds, Non tender, no ascites Skin : Warm, Dry Neurological : Alert & oriented x3, No focal deficit Objective Data Active Medications Enoxaparin Sodium (Enoxaparin Sodium 40 Mg/0.4 Ml Syringe) 40 mg SUBCUT Q24H [facility] Last Admin: 07/16/23 06:08 Dose: 40 mg Documented By: IKE Lactulose (Lactulose 20 Gm/30 Ml Solution) 20 gm PO QID [facility] Last Admin: 07/15/23 21:21 Dose: 20 gm Documented By: IKE Methylprednisolone Sodium Succinate (Methylprednisolone Sod Succ 40 Mg/Ml Vial) 32 mg IVPUSH Q24H [facility] Last Admin: 07/16/23 06:07 Dose: 32 mg Documented By: IKE Multivitamins/Vitamin C (Multivitamin Tablet) 1 tab PO DAILY [facility] Ondansetron HCl (Ondansetron Hcl 4 Mg/2 Ml Vial) 4 mg IVPUSH Q8H PRN PRN Reason: Nausea and Vomiting Pantoprazole Sodium (Pantoprazole Sodium 40 Mg/10 Ml Vial) 40 mg IVPUSH DAILY@0630 [facility] Last Admin: 07/16/23 06:41 Dose: 40 mg Documented By: IKE Pharmacy Consult (Consult Rx Etoh Phenob Im/Po) 1 each MISCELLANE ONCE PRN; Protocol PRN Reason: Consult order Phenobarbital (Phenobarbital 15 Mg Tablet) 45 mg PO BID [facility]; Protocol Stop: 07/18/23 09:01 Phenobarbital (Phenobarbital 30 Mg Tablet) 30 mg PO BEDTIME [facility]; Protocol Stop: 07/21/23 21:01 Phenobarbital (Phenobarbital 30 Mg Tablet) 30 mg PO BID [facility]; Protocol Stop: 07/20/23 09:01 Phenobarbital Sodium (Phenobarbital Sodium 130 Mg/Ml Vial Im Q3hx2) 150 mg IM Q3H [facility]; Protocol Stop: 07/16/23 15:01 Sodium Chloride (0.9 % Sodium Chloride Flush 3 Ml Syringe) 3 ml IVFLUSH QSHIFT [facility] Last Admin: 07/16/23 08:57 Dose: Not Given Documented By: MARJORIE Non-Admin Reason: prev shift Thiamine HCl (Thiamine Hcl 100 Mg Tablet) 100 mg PO DAILY [facility] Labs 07/16/23 05:18 07/16/23 05:18 Labs: Laboratory Results - last 24 hr 07/15/23 07/15/23 07/16/23 11:34 20:26 05:18 MCV 93.9 MCH 33.4 H MCHC 35.6 RDW 19.1 H Plt Count 260 D MPV 9.7 Absolute Nucleated RBC 0.000 Nucleated RBC % (auto) 0.0 PT 27.4 H INR 2.3 H Anion Gap 14 Estim Creat Clear Calc 53.1 Estimated GFR > 60 Random Glucose 67 Calcium 8.1 L Ferritin 759 H Total Bilirubin 7.2 H Direct Bilirubin 5.9 H GGT 469 H AST 403 H ALT 158 H Alkaline Phosphatase 389 H Total Protein 6.3 L Albumin 2.2 L HIV 1&2 Ab/P24 Ag 4thGn Nonreactive Assessment and Plan (1) Acute hepatitis: Status: Acute (2) Cirrhosis: Status: Acute (3) Alcohol abuse: Status: Acute Plan This is a 78-year-old male with pertinent history of hyperthyroidism, gastroesophageal reflux disease, mixed hyperlipidemia, alcohol use disorder who presents to the emergency department at the behest of PCP for evaluation of jaundice. # Acute alcoholic hepatitis MELD score of 23, MDF 76 Continue steroids. Gastroenterology input appreciated, consider colonoscopy Alcohol abstinence reinforced. DC IV crystalloids. DC IV Protonix. start PO Negative Hepatitis panel # Cirrhosis of liver Continue lactulose with goal 2 BM daily Varices noted on imaging, would benefit from beta-cheli once pressure improves # Alcohol use disorder w high withdrawal risk Initiated thiamine. Monitor CIWA start Phenobarb protocol # Hyperthyroidism On methimazole. Obtain TSH # Mixed hyperlipidemia Hold statin DVT prophylaxis: Lovenox Full code Surrogate decision maker: Pallavi, daughter: [phone] will require overnight hospital stay for close monitoring of liver enzymes and clinical response, which is not possible in a lesser acute setting. Quality Stroke Does the patient have a stroke diagnosis?: No VTE Prior VTE?: No VTE Risk Level:: Medical - moderate - high VTE Device Contraindication: Treatment Not Indicated VTE Drug Contraindication: N/A - Med Ordered
[2023-07-16 10:00] VITALS: BP 103/51; PULSE 55; RESP 16; TEMP 36.4; O2SAT 97
[2023-07-16] MEDS: Multivitamin TABLET 1 TAB PO (10:59)
[2023-07-16] MEDS: Thiamine HCL 100 MG TABLET PO (10:59)
--- NOTE | 2023-07-16 11:00 | PC.NURSE ---
ate breakfast well
--- NOTE | 2023-07-16 11:41 | PC.NURSE ---
continues to decline lactulose- wants to take at 1300 to digest his breakfast more
--- NOTE | 2023-07-16 11:43 | PC.NURSE ---
pt originally stated had last drink 1 mo ago- states he actually had a few nips 3-4 days ago. md juan made aware.
--- NOTE | 2023-07-16 11:54 | PC.NURSE ---
md juan aware declined lactulose and wants at 1300
--- NOTE | 2023-07-16 12:32 | MHC.CM.PN ---
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 PT VERIFIES PCP ON FILE DR GUZMAN IS CORRECT AND PT REPORTS HE IS FULLY COVID VACC'D EXCEPT THIS FALL/WINTER SEASON.
--- NOTE | 2023-07-16 12:42 | PC.NURSE ---
pt states his last drink was 1 mo ago- stated 3 d ago was a mistake. md juan aware- no pheno given - md juan aware. ciwa 0
--- NOTE | 2023-07-16 14:29 | PC.NURSE ---
walked well to BR. no distress.
--- NOTE | 2023-07-16 15:06 | PC.NURSE ---
transport has not come but read message that pt ready in tiger text earlier-texted group thread again to check in w transport
--- NOTE | 2023-07-16 15:08 | PC.NURSE ---
chargemaster specialist responded to this rn's inquiry re transport ETA- admitting put wrong transporter on list to bring pt up, this rn texted correct transporter.
[2023-07-16 16:00] VITALS: BP 127/68; PULSE 54; RESP 20; TEMP 36.5; O2SAT 97
[2023-07-16 16:10] VITALS: BMI 22.9
[2023-07-16 19:29] VITALS: BP 132/87; PULSE 67; RESP 20; TEMP 36.6; O2SAT 97
[2023-07-16] MEDS: PHENobarbitaL 15 MG TABLET 45 MG PO (22:39)
[2023-07-16] MEDS: Lactulose 20 GM/30 ML SOLUTION PO (22:42)
[2023-07-17 03:43] VITALS: BP 100/54; PULSE 52; RESP 16; TEMP 36.7; O2SAT 96
[2023-07-17] MEDS: Omeprazole 40 MG CAPSULE.DR PO (05:30)
[2023-07-17] MEDS: methylPREDNISolone Sod Succ 40 MG/ML VIAL 32 MG IVPUSH (05:32)
[2023-07-17 06:30] LABS: Hematocrit 28.1 % (42.0-52.0); Mean Corpuscular HGB Conc 35.6 g/dl (31.0-36.0); Mean Corpuscular Volume 92.7 fL (80.0-98.0); Mean Platelet Volume 9.7 fL (9.4-12.4); Platelet Count 255 X10*3/uL (160-400); Red Blood Count 3.03 X10*6/uL (4.60-5.80); Red Cell Distribution Width 19.2 % (11.0-16.0); White Blood Count 8.7 X10*3/uL (4.8-10.8)
[2023-07-17 06:40] LABS: INTERNATIONAL NORM RATIO 2.3 (0.9-1.1)
[2023-07-17 06:45] LABS: Alanine Aminotransferase 173 U/L (0-40); Albumin Level 2.1 g/dL (3.5-5.0); Alkaline Phosphatase 378 U/L (39-117); Anion Gap 13 (12-20); Aspartate Amino Transferase 423 U/L (5-37); Bilirubin Direct 5.7 mg/dL (0.0-0.5); Bilirubin Total 7.1 mg/dL (0.0-1.0); Blood Urea Nitrogen 23 mg/dL (9-16); Calcium 8.1 mg/dL (8.4-10.2); Carbon Dioxide 20 mmol/L (22-29); Chloride 108 mmol/L (96-108); Creatinine Clr Calc Pharmacy 44.3; Estimated Glomerular Filt Rate > 60; Glucose Random 88 mg/dL (60-115); Potassium 3.8 mmol/L (3.3-5.1); Sodium 137 mmol/L (135-145); Total Protein 6.2 g/dL (6.5-8.0)
[2023-07-17 07:34] VITALS: BP 121/77; PULSE 61; RESP 14; TEMP 36.1; O2SAT 98
[2023-07-17] MEDS: 0.9 % Sodium Chloride Flush 3 ML SYRINGE IVFLUSH ×2 (08:18→15:18)
[2023-07-17] MEDS: PHENobarbitaL 15 MG TABLET 45 MG PO ×2 (08:19→22:20)
[2023-07-17] MEDS: Multivitamin TABLET 1 TAB PO (08:19)
[2023-07-17] MEDS: Lactulose 20 GM/30 ML SOLUTION PO (08:19)
[2023-07-17] MEDS: Thiamine HCL 100 MG TABLET PO (08:19)
--- NOTE | 2023-07-17 11:08 | P.PNIM_ITS ---
Subjective Subjective Date of Service: 07/17/23 Interval History: Seen and evaluated this morning feels ok overall, tolerating diet and having bowel movements Bili trending down INR stable at 2.3 Review of Systems Review of Systems: Yes all other systems are reviewed and are negative Physical Exam 2 Vital Signs: Vital Signs: Last Vital Signs Temp 96.9 F 07/17/23 07:34 Pulse 61 07/17/23 07:34 Resp 14 07/17/23 07:34 BP 121/77 07/17/23 07:34 Pulse Ox 98 07/17/23 07:34 O2 Del Method Room Air 07/17/23 07:34 BMI result Body Mass Index 22.9 Const: Other: Constitutional : Awake, interactive, not in distress, mild jaundice Neck : Normal inspection, Supple Cardiovascular : RRR, no JVP, no lower extremity edema Respiratory : good bilateral air entry, no crackles, wheezes or rhonchi Gastrointestinal: soft, lax, Normal bowel sounds, Non tender, no ascites Skin : Warm, Dry Neurological : Alert & oriented x3, No focal deficit Objective Data Active Medications Lactulose (Lactulose 20 Gm/30 Ml Solution) 20 gm PO BID [facility] Last Admin: 07/17/23 08:19 Dose: 20 gm Documented By: ERIK Multivitamins/Vitamin C (Multivitamin Tablet) 1 tab PO DAILY [facility] Last Admin: 07/17/23 08:19 Dose: 1 tab Documented By: ERIK Omeprazole (Omeprazole 40 Mg Capsule.Dr) 40 mg PO DAILY@0630 [facility] Last Admin: 07/17/23 05:30 Dose: 40 mg Documented By: TANO Ondansetron HCl (Ondansetron Hcl 4 Mg/2 Ml Vial) 4 mg IVPUSH Q8H PRN PRN Reason: Nausea and Vomiting Pharmacy Consult (Consult Rx Etoh Phenob Im/Po) 1 each MISCELLANE ONCE PRN; Protocol PRN Reason: Consult order Phenobarbital (Phenobarbital 15 Mg Tablet) 45 mg PO BID [facility]; Protocol Stop: 07/18/23 09:01 Last Admin: 07/17/23 08:19 Dose: 45 mg Documented By: ERIK Phenobarbital (Phenobarbital 30 Mg Tablet) 30 mg PO BEDTIME [facility]; Protocol Stop: 07/21/23 21:01 Phenobarbital (Phenobarbital 30 Mg Tablet) 30 mg PO BID [facility]; Protocol Stop: 07/20/23 09:01 Prednisolone Sodium Phosphate (Prednisolone Sodium Phosphate 15 Mg/5 Ml Solution) 40 mg PO DAILY [facility] Sodium Chloride (0.9 % Sodium Chloride Flush 3 Ml Syringe) 3 ml IVFLUSH QSHIFT [facility] Last Admin: 07/17/23 08:18 Dose: 3 ml Documented By: ERIK Thiamine HCl (Thiamine Hcl 100 Mg Tablet) 100 mg PO DAILY [facility] Last Admin: 07/17/23 08:19 Dose: 100 mg Documented By: ERIK Labs 07/17/23 06:10 07/17/23 06:10 Labs: Laboratory Results - last 24 hr 07/17/23 06:10 MCV 92.7 MCH 33.0 MCHC 35.6 RDW 19.2 H Plt Count 255 MPV 9.7 Absolute Nucleated RBC 0.000 Nucleated RBC % (auto) 0.0 PT 28.0 H INR 2.3 H Anion Gap 13 Estim Creat Clear Calc 44.3 Estimated GFR > 60 Random Glucose 88 Calcium 8.1 L Total Bilirubin 7.1 H Direct Bilirubin 5.7 H AST 423 H ALT 173 H Alkaline Phosphatase 378 H Total Protein 6.2 L Albumin 2.1 L Microbiology Microbiology Results: Microbiology 07/15/23 Unknown Urine Culture - Final Urine clean catch - Urine quigley top No growth. Assessment and Plan (1) Cirrhosis: Status: Acute (2) Acute hepatitis: Status: Acute Plan This is a 78-year-old male with pertinent history of hyperthyroidism, gastroesophageal reflux disease, mixed hyperlipidemia, alcohol use disorder who presents to the emergency department at the behest of PCP for evaluation of jaundice. # Acute alcoholic hepatitis MELD score of 24, MDF 78 Gastroenterology input appreciated, consider colonoscopy Alcohol abstinence reinforced. DC IV crystalloids. DC IV Protonix. start PO Negative Hepatitis panel Pending PTEH level (Phosphatidylethanol) Continue Prednisolone therapy follow response over 1 week # Cirrhosis of liver Continue lactulose with goal 2 BM daily Varices noted on imaging, would benefit from beta-cheli once pressure improves # Alcohol use disorder w high withdrawal risk Initiated thiamine. Monitor CIWA start Phenobarb protocol # Elevated INR INR 2.3 to give Vit K follow INR # Hyperthyroidism On methimazole. Obtain TSH # Mixed hyperlipidemia Hold statin DVT prophylaxis: Lovenox Full code Surrogate decision maker: Pallavi, daughter: [phone] will require overnight hospital stay for close monitoring of liver enzymes and clinical response, which is not possible in a lesser acute setting. Quality Stroke Does the patient have a stroke diagnosis?: No VTE Prior VTE?: No VTE Risk Level:: Medical - moderate - high VTE Device Contraindication: Treatment Not Indicated VTE Drug Contraindication: N/A - Med Ordered
[2023-07-17] MEDS: Phytonadione (Vit K1) Oral 10 MG/ML AMPUL PO (11:26)
--- NOTE | 2023-07-17 11:49 | MHC.CLN ---
NUTRITION REVIEW OF WEIGHT HX SHOWS -9.5% WEIGHT LOSS X 4 MONTHS; -6.8% WEIGHT LOSS X 10 MONTHS. DIET=2 G SODIUM-APPROPRIATE. SUPPLEMENT ENSURE TID. PROVIDES ADDITIONAL 1050 KCALS, [address] TO MONITOR WEEKLY.
[2023-07-17 13:43] LABS: Immunoglobulin G 1937 mg/dL (600-1540)
[2023-07-17 13:43] LABS: IgA 814 mg/dL (70-320); IgG 2061 mg/dL (600-1540); IgM 196 mg/dL (50-300)
--- NOTE | 2023-07-17 14:21 | MHC.CM.PN ---
Addendum entered by Chitra Meadows 07/17/23 15:45: PT COMPLETED HCP WITH THIS CM. Original Note: EMR REVIEWED AND PER MD ROUNDS, PT IS NOT MEDICALLY CLEARED FOR DC (ABN LABS, ETOH WITHDRAWAL PROTOCOL) CM WILL CONTINUE TO FOLLOW FOR ANY CHANGE IN DC NEEDS/PLAN.
[2023-07-17 15:50] VITALS: BP 118/59; PULSE 57; RESP 18; TEMP 36.2; O2SAT 97
[2023-07-17 16:19] LABS: Alpha 1 Anti-trypsin 275 mg/dL (83-199)
[2023-07-17 19:25] VITALS: BP 123/58; PULSE 59; RESP 18; TEMP 36.2; O2SAT 97
[2023-07-17] MEDS: traZODone HCL 50 MG TABLET PO (22:21)
[2023-07-18] MEDS: 0.9 % Sodium Chloride Flush 3 ML SYRINGE IVFLUSH ×3 (00:32→16:37)
[2023-07-18 04:00] VITALS: BP 116/58; PULSE 58; RESP 14; TEMP 36.5; O2SAT 97
[2023-07-18 06:13] LABS: INTERNATIONAL NORM RATIO 1.5 (0.9-1.1); Prothrombin Time 17.7 SEC (11.1-13.3)
[2023-07-18] MEDS: Omeprazole 40 MG CAPSULE.DR PO (06:17)
[2023-07-18 06:33] LABS: Alanine Aminotransferase 181 U/L (0-40); Albumin Level 2.1 g/dL (3.5-5.0); Alkaline Phosphatase 384 U/L (39-117); Aspartate Amino Transferase 401 U/L (5-37); Bilirubin Direct 5.6 mg/dL (0.0-0.5); Total Protein 6.2 g/dL (6.5-8.0)
[2023-07-18 07:49] VITALS: BP 107/53; PULSE 56; RESP 16; TEMP 36; O2SAT 98
[2023-07-18] MEDS: Multivitamin TABLET 1 TAB PO (08:22)
[2023-07-18] MEDS: Thiamine HCL 100 MG TABLET PO (08:22)
[2023-07-18] MEDS: PHENobarbitaL 15 MG TABLET 45 MG PO (08:22)
[2023-07-18] MEDS: prednisoLONE sodium phosphate 15 MG/5 ML SOLUTION 40 MG PO (08:22)
--- NOTE | 2023-07-18 10:54 | P.PNIM_ITS ---
Subjective Subjective Date of Service: 07/18/23 Interval History: Seen and evaluated this morning feels ok overall, tolerating diet and having bowel movements Bili trending down slowly INR improved to 1.5 Review of Systems Review of Systems: Yes all other systems are reviewed and are negative Physical Exam 2 Vital Signs: Vital Signs: Last Vital Signs Temp 96.8 F 07/18/23 07:49 Pulse 56 07/18/23 07:49 Resp 16 07/18/23 07:49 BP 107/53 L 07/18/23 07:49 Pulse Ox 98 07/18/23 07:49 O2 Del Method Room Air 07/18/23 07:49 BMI result Body Mass Index 22.9 Const: Other: Constitutional : Awake, interactive, not in distress, mild jaundice Neck : Normal inspection, Supple Cardiovascular : RRR, no JVP, no lower extremity edema Respiratory : good bilateral air entry, no crackles, wheezes or rhonchi Gastrointestinal: soft, lax, Normal bowel sounds, Non tender, no ascites Skin : Warm, Dry Neurological : Alert & oriented x3, No focal deficit Objective Data Active Medications Lactulose (Lactulose 20 Gm/30 Ml Solution) 20 gm PO BID [facility] Last Admin: 07/18/23 08:23 Dose: Not Given Documented By: EDILMA Non-Admin Reason: Patient Refused Lidocaine (Lidocaine 4 % Patch Adh..Patch) 1 patch TRANSDERMA DAILY [facility]; Protocol Multivitamins/Vitamin C (Multivitamin Tablet) 1 tab PO DAILY [facility] Last Admin: 07/18/23 08:22 Dose: 1 tab Documented By: EDILMA Omeprazole (Omeprazole 40 Mg Rajiv.) 40 mg PO DAILY@0630 [facility] Last Admin: 07/18/23 06:17 Dose: 40 mg Documented By: CHEMA Ondansetron HCl (Ondansetron Hcl 4 Mg/2 Ml Vial) 4 mg IVPUSH Q8H PRN PRN Reason: Nausea and Vomiting Pharmacy Consult (Consult Rx Etoh Phenob Im/Po) 1 each MISCELLANE ONCE PRN; Protocol PRN Reason: Consult order Phenobarbital (Phenobarbital 30 Mg Tablet) 30 mg PO BEDTIME [facility]; Protocol Stop: 07/21/23 21:01 Phenobarbital (Phenobarbital 30 Mg Tablet) 30 mg PO BID [facility]; Protocol Stop: 07/20/23 09:01 Prednisolone Sodium Phosphate (Prednisolone Sodium Phosphate 15 Mg/5 Ml Solution) 40 mg PO DAILY [facility] Last Admin: 07/18/23 08:22 Dose: 40 mg Documented By: EDILMA Sodium Chloride (0.9 % Sodium Chloride Flush 3 Ml Syringe) 3 ml IVFLUSH QSHIFT [facility] Last Admin: 07/18/23 08:22 Dose: 3 ml Documented By: EDILMA Thiamine HCl (Thiamine Hcl 100 Mg Tablet) 100 mg PO DAILY [facility] Last Admin: 07/18/23 08:22 Dose: 100 mg Documented By: EDILMA Trazodone HCl (Trazodone Hcl 50 Mg Tablet) 50 mg PO BEDTIME [facility] Last Admin: 07/17/23 22:21 Dose: 50 mg Documented By: KAYDEN Labs 07/17/23 06:10 07/17/23 06:10 Labs: Laboratory Results - last 24 hr 07/15/23 07/15/23 07/18/23 14:24 20:26 05:11 Hold Purple Top SEE NOTE PT 17.7 H D INR 1.5 H Total Bilirubin 7.0 H Direct Bilirubin 5.6 H AST 401 H ALT 181 H Alkaline Phosphatase 384 H Total Protein 6.2 L Albumin 2.1 L [id number] 275 H IgG 1937 H IgG Total 2061 H IgA Total 814 H IgM 196 Assessment and Plan (1) Cirrhosis: Status: Acute (2) Acute hepatitis: Status: Acute (3) Alcohol abuse: Status: Acute Plan This is a 78-year-old male with pertinent history of hyperthyroidism, gastroesophageal reflux disease, mixed hyperlipidemia, alcohol use disorder who presents to the emergency department at the behest of PCP for evaluation of jaundice. # Acute alcoholic hepatitis MELD score improved to 18 Gastroenterology input appreciated, consider colonoscopy , prednisone therapy Negative Hepatitis panel Alcohol abstinence reinforced. Elevated Lfddf-[id number] DC IV crystalloids. DC IV Protonix. start PO Pending PTEH level (Phosphatidylethanol) Continue Prednisolone therapy follow response over 1 week # Cirrhosis of liver Continue lactulose with goal 2 BM daily Varices noted on imaging, would benefit from beta-cheli once pressure improves # Alcohol use disorder w high withdrawal risk Initiated thiamine. Monitor CIWA Hold Phenobarb protocol for low score # Elevated INR INR 1.5 after 10 mg Vit K follow INR # Hyperthyroidism On methimazole. Obtain TSH # Mixed hyperlipidemia Hold statin DVT prophylaxis: Heathernox Full code Surrogate decision maker: Pallavi, daughter: [phone] will require overnight hospital stay for close monitoring of liver enzymes and clinical response, which is not possible in a lesser acute setting. Quality Stroke Does the patient have a stroke diagnosis?: No VTE Prior VTE?: No VTE Risk Level:: Medical - moderate - high VTE Device Contraindication: Treatment Not Indicated VTE Drug Contraindication: N/A - Med Ordered
[2023-07-18] MEDS: Lidocaine 4 % Patch ADH..PATCH 1 PATCH TRANSDERMA (12:46)
[2023-07-18 14:59] VITALS: BP 107/59; PULSE 57; RESP 14; TEMP 36.1; O2SAT 96
[2023-07-18 20:00] VITALS: BP 129/58; PULSE 60; RESP 16; TEMP 36.6; O2SAT 98
[2023-07-18] MEDS: traZODone HCL 50 MG TABLET PO (20:09)
[2023-07-18] MEDS: Lactulose 20 GM/30 ML SOLUTION PO (20:09)
[2023-07-19] MEDS: 0.9 % Sodium Chloride Flush 3 ML SYRINGE IVFLUSH ×3 (00:19→15:51)
[2023-07-19 03:51] VITALS: BP 122/59; PULSE 57; RESP 17; TEMP 36.1; O2SAT 97
[2023-07-19 05:50] VITALS: RESP 18
[2023-07-19] MEDS: Omeprazole 40 MG CAPSULE.DR PO (06:06)
[2023-07-19 06:51] LABS: Anion Gap 14 (12-20); Blood Urea Nitrogen 22 mg/dL (9-16); Calcium 8.1 mg/dL (8.4-10.2); Carbon Dioxide 21 mmol/L (22-29); Chloride 106 mmol/L (96-108); Creatinine Clr Calc Pharmacy 52.5; Estimated Glomerular Filt Rate > 60; Glucose Random 63 mg/dL (60-115); Potassium 3.6 mmol/L (3.3-5.1); Sodium 137 mmol/L (135-145)
[2023-07-19 06:55] LABS: Alanine Aminotransferase 195 U/L (0-40); Albumin Level 2.2 g/dL (3.5-5.0); Alkaline Phosphatase 381 U/L (39-117); Aspartate Amino Transferase 401 U/L (5-37); Bilirubin Direct 5.7 mg/dL (0.0-0.5); Bilirubin Total 7.1 mg/dL (0.0-1.0); Total Protein 6.6 g/dL (6.5-8.0)
[2023-07-19 07:33] VITALS: BP 114/55; PULSE 60; RESP 16; TEMP 35.9; O2SAT 98
[2023-07-19] MEDS: prednisoLONE sodium phosphate 15 MG/5 ML SOLUTION 40 MG PO (09:33)
[2023-07-19] MEDS: Multivitamin TABLET 1 TAB PO (09:33)
[2023-07-19] MEDS: Thiamine HCL 100 MG TABLET PO (09:33)
--- NOTE | 2023-07-19 12:21 | HO.PM.IMPN ---
Subjective Subjective Date of Service: 07/19/23 Interval History: Seen and evaluated this morning feels ok overall, tolerating diet and having bowel movements Bili around 7 for the last few days INR improved to 1.5 Physical Exam Vital Signs: Vital Signs: Last Vital Signs Temp 96.7 F L 07/19/23 07:33 Pulse 60 07/19/23 07:33 Resp 16 07/19/23 07:33 BP 114/55 L 07/19/23 07:33 Pulse Ox 98 07/19/23 07:33 O2 Del Method Room Air 07/19/23 07:33 BMI result Body Mass Index 22.9 Const: Other: Constitutional : Awake, interactive, not in distress, mild jaundice Neck : Normal inspection, Supple Cardiovascular : RRR, no JVP, no lower extremity edema Respiratory : good bilateral air entry, no crackles, wheezes or rhonchi Gastrointestinal: soft, lax, Normal bowel sounds, Non tender, no ascites Skin : Warm, Dry Neurological : Alert & oriented x3, No focal deficit Objective Data Active Medications Lactulose (Lactulose 20 Gm/30 Ml Solution) 20 gm PO BID [facility] Last Admin: 07/19/23 09:34 Dose: Not Given Documented By: EDILMA Non-Admin Reason: Patient Refused Lidocaine (Lidocaine 4 % Patch Adh..Patch) 1 patch TRANSDERMA DAILY [facility]; Protocol Last Admin: 07/19/23 09:34 Dose: Not Given Documented By: EDILMA Non-Admin Reason: Patient Refused Multivitamins/Vitamin C (Multivitamin Tablet) 1 tab PO DAILY [facility] Last Admin: 07/19/23 09:33 Dose: 1 tab Documented By: EDILMA Omeprazole (Omeprazole 40 Mg Capsule.Dr) 40 mg PO DAILY@0630 [facility] Last Admin: 07/19/23 06:06 Dose: 40 mg Documented By: CHEMA Ondansetron HCl (Ondansetron Hcl 4 Mg/2 Ml Vial) 4 mg IVPUSH Q8H PRN PRN Reason: Nausea and Vomiting Pharmacy Consult (Consult Rx Etoh Phenob Im/Po) 1 each MISCELLANE ONCE PRN; Protocol PRN Reason: Consult order Prednisolone Sodium Phosphate (Prednisolone Sodium Phosphate 15 Mg/5 Ml Solution) 40 mg PO DAILY [facility] Last Admin: 07/19/23 09:33 Dose: 40 mg Documented By: EDILMA Sodium Chloride (0.9 % Sodium Chloride Flush 3 Ml Syringe) 3 ml IVFLUSH QSHIFT [facility] Last Admin: 07/19/23 09:34 Dose: 3 ml Documented By: EDILMA Thiamine HCl (Thiamine Hcl 100 Mg Tablet) 100 mg PO DAILY [facility] Last Admin: 07/19/23 09:33 Dose: 100 mg Documented By: EDILMA Trazodone HCl (Trazodone Hcl 50 Mg Tablet) 50 mg PO BEDTIME [facility] Last Admin: 07/18/23 20:09 Dose: 50 mg Documented By: SCTOTIT Labs 07/17/23 06:10 07/19/23 05:19 Labs: Laboratory Results - last 24 hr 07/19/23 05:19 Hold Purple Top SEE NOTE Anion Gap 14 Estim Creat Clear Calc 52.5 Estimated GFR > 60 Random Glucose 63 Calcium 8.1 L Total Bilirubin 7.1 H Direct Bilirubin 5.7 H AST 401 H ALT 195 H Alkaline Phosphatase 381 H Total Protein 6.6 Albumin 2.2 L Assessment and Plan (1) Cirrhosis: Status: Acute (2) Acute hepatitis: Status: Acute (3) Alcohol abuse: Status: Acute Plan This is a 78-year-old male with pertinent history of hyperthyroidism, gastroesophageal reflux disease, mixed hyperlipidemia, alcohol use disorder who presents to the emergency department at the behest of PCP for evaluation of jaundice. # Acute alcoholic hepatitis MELD score improved to 18 Gastroenterology input appreciated, consider colonoscopy , prednisone therapy for 1 week then reassess Negative Hepatitis panel Elevated Towjn-4-Kafgupafftu Alcohol abstinence reinforced. DC IV crystalloids. DC IV Protonix. start PO Pending PTEH level (Phosphatidylethanol) Continue Prednisolone therapy follow response over 1 week # Cirrhosis of liver Continue lactulose with goal 2 BM daily Varices noted on imaging, would benefit from beta-cheli once pressure improves # Alcohol use disorder w high withdrawal risk Initiated thiamine. Monitor CIWA Hold Phenobarb protocol for low score # Elevated INR INR 1.5 after 10 mg Vit K follow INR # Hyperthyroidism On methimazole. Obtain TSH # Mixed hyperlipidemia Hold statin DVT prophylaxis: Lovenox Full code Surrogate decision maker: Pallavi, daughter: [phone] will require overnight hospital stay for close monitoring of liver enzymes and clinical response, which is not possible in a lesser acute setting. Quality Stroke Does the patient have a stroke diagnosis?: No VTE Prior VTE?: No VTE Risk Level:: Medical - moderate - high VTE Device Contraindication: Treatment Not Indicated VTE Drug Contraindication: N/A - Med Ordered
[2023-07-19 14:39] VITALS: BP 104/54; PULSE 59; RESP 18; TEMP 36; O2SAT 97
--- NOTE | 2023-07-19 15:59 | PC.NURSE ---
Addendum entered by Arminda Tobin RN 07/19/23 17:03: trazodone dose was increased for patient ,patient made aware with site specialist Original Note: Patient c/o not sleeping well at night,asking for sleeping pill,c/o rectal area irritation but refuses for nurse to assess area,protective cream provided for patient ,Dr. Rizvi notified
--- NOTE | 2023-07-19 16:47 | PC.NURSE ---
Addendum entered by Arminda Tobin RN 07/19/23 22:17: Patient reports good effect from Zofran and also good effect from [place] supp. Original Note: Called in educational interpreter ,explained need for lactulose,explained how Zofran can help with nausea,explained the doctor ordered supp. for complaints of hemmoroids,patient states understanding ,will administer meds as ordered
[2023-07-19] MEDS: ondansetron HCL 4 MG/2 ML VIAL IVPUSH (16:54)
[2023-07-19] MEDS: Lactulose 20 GM/30 ML SOLUTION PO (16:56)
[2023-07-19] MEDS: Cocoa Butter/Zinc Oxide SUPP.RECT 1 SUPP PR (16:57)
[2023-07-19 19:54] VITALS: BP 115/56; PULSE 60; RESP 18; TEMP 36.2; O2SAT 96
[2023-07-19 19:59] VITALS: BP 115/56; PULSE 58; RESP 18; TEMP 36.2; O2SAT 97
[2023-07-19] MEDS: traZODone HCL 25 MG HALFTAB 75 MG PO (20:33)
[2023-07-20] MEDS: 0.9 % Sodium Chloride Flush 3 ML SYRINGE IVFLUSH ×4 (00:10→20:39)
[2023-07-20 03:37] VITALS: BP 106/55; PULSE 62; RESP 20; TEMP 36.3; O2SAT 98
[2023-07-20] MEDS: Omeprazole 40 MG CAPSULE.DR PO (05:49)
[2023-07-20 05:55] LABS: INTERNATIONAL NORM RATIO 1.3 (0.9-1.1); Prothrombin Time 15.7 SEC (11.1-13.3)
[2023-07-20 06:07] LABS: Alanine Aminotransferase 204 U/L (0-40); Albumin Level 2.1 g/dL (3.5-5.0); Alkaline Phosphatase 390 U/L (39-117); Aspartate Amino Transferase 403 U/L (5-37); Bilirubin Direct 5.6 mg/dL (0.0-0.5); Total Protein 6.1 g/dL (6.5-8.0)
[2023-07-20 06:56] VITALS: BP 104/52; PULSE 58; RESP 18; TEMP 36.4; O2SAT 97
[2023-07-20] MEDS: Multivitamin TABLET 1 TAB PO (08:37)
[2023-07-20] MEDS: Thiamine HCL 100 MG TABLET PO (08:37)
[2023-07-20] MEDS: prednisoLONE sodium phosphate 15 MG/5 ML SOLUTION 40 MG PO (08:37)
--- NOTE | 2023-07-20 09:08 | P.PNIM_ITS ---
Subjective Subjective Date of Service: 07/20/23 Interval History: Seen and evaluated this morning feels ok overall, tolerating diet and having bowel movements Bili around 7 for the last few days INR improved to 1.3 Review of Systems Review of Systems: Yes all other systems are reviewed and are negative Physical Exam 2 Vital Signs: Vital Signs: Last Vital Signs Temp 97.5 F 07/20/23 06:56 Pulse 58 07/20/23 06:56 Resp 18 07/20/23 06:56 BP 104/52 L 07/20/23 06:56 Pulse Ox 97 07/20/23 06:56 O2 Del Method Room Air 07/20/23 06:56 BMI result Body Mass Index 22.9 Const: Other: Constitutional : Awake, interactive, not in distress, mild jaundice Neck : Normal inspection, Supple Cardiovascular : RRR, no JVP, no lower extremity edema Respiratory : good bilateral air entry, no crackles, wheezes or rhonchi Gastrointestinal: soft, lax, Normal bowel sounds, Non tender, no ascites Skin : Warm, Dry Neurological : Alert & oriented x3, No focal deficit Objective Data Active Medications [place] Butter/Zinc Oxide ([place] Butter/Zinc Oxide Supp.Rect) 1 supp [place] BID PRN PRN Reason: Hemorrhoids Lactulose (Lactulose 20 Gm/30 Ml Solution) 20 gm PO BID [facility] Last Admin: 07/19/23 16:56 Dose: 20 gm Documented By: AGUSTO Lidocaine (Lidocaine 4 % Patch Adh..Patch) 1 patch TRANSDERMA DAILY [facility]; Protocol Last Admin: 07/20/23 08:38 Dose: Not Given Documented By: EDILMA Non-Admin Reason: Patient Refused Multivitamins/Vitamin C (Multivitamin Tablet) 1 tab PO DAILY [facility] Last Admin: 07/20/23 08:37 Dose: 1 tab Documented By: EDILMA Omeprazole (Omeprazole 40 Mg Capsule.Dr) 40 mg PO DAILY@0630 [facility] Last Admin: 07/20/23 05:49 Dose: 40 mg Documented By: COTGERBER Ondansetron HCl (Ondansetron Hcl 4 Mg/2 Ml Vial) 4 mg IVPUSH Q8H PRN PRN Reason: Nausea and Vomiting Last Admin: 07/19/23 16:54 Dose: 4 mg Pharmacy Consult (Consult Rx Etoh Phenob Im/Po) 1 each MISCELLANE ONCE PRN; Protocol PRN Reason: Consult order Prednisolone Sodium Phosphate (Prednisolone Sodium Phosphate 15 Mg/5 Ml Solution) 40 mg PO DAILY [facility] Last Admin: 07/20/23 08:37 Dose: 40 mg Documented By: EDILMA Sodium Chloride (0.9 % Sodium Chloride Flush 3 Ml Syringe) 3 ml IVFLUSH QSHIFT [facility] Last Admin: 07/20/23 08:38 Dose: 3 ml Documented By: EDILMA Thiamine HCl (Thiamine Hcl 100 Mg Tablet) 100 mg PO DAILY [facility] Last Admin: 07/20/23 08:37 Dose: 100 mg Documented By: EDILMA Trazodone HCl (Trazodone Hcl 25 Mg Halftab) 75 mg PO BEDTIME [facility] Last Admin: 07/19/23 20:33 Dose: 75 mg Documented By: SCOTTIT Labs 07/17/23 06:10 07/19/23 05:19 Labs: Laboratory Results - last 24 hr 07/20/23 05:35 Hold Purple Top SEE NOTE PT 15.7 H INR 1.3 H Total Bilirubin 7.0 H Direct Bilirubin 5.6 H AST 403 H ALT 204 H Alkaline Phosphatase 390 H Total Protein 6.1 L Albumin 2.1 L Assessment and Plan (1) Cirrhosis: Status: Acute (2) Acute hepatitis: Status: Acute Plan This is a 78-year-old male with pertinent history of hyperthyroidism, gastroesophageal reflux disease, mixed hyperlipidemia, alcohol use disorder who presents to the emergency department at the behest of PCP for evaluation of jaundice. # Acute alcoholic hepatitis MELD score improved to 17 Gastroenterology input appreciated, consider colonoscopy , prednisone therapy for 1 week then reassess Negative Hepatitis panel Elevated [id number]-7-Ldkrwezhgiw Alcohol abstinence reinforced. DC IV crystalloids. DC IV Protonix. start PO Pending PTEH level (Phosphatidylethanol) Continue Prednisolone therapy follow response over 1 week If no response will consider transfer to tertiary center for transplant evaluation # Cirrhosis of liver Continue lactulose with goal 2 BM daily Varices noted on imaging, would benefit from beta-cheli once pressure improves # Alcohol use disorder w high withdrawal risk Initiated thiamine. Monitor CIWA Hold Phenobarb protocol for low score # Elevated INR INR 1.5 after 10 mg Vit K follow INR # Hyperthyroidism On methimazole. Obtain TSH # Mixed hyperlipidemia Hold statin DVT prophylaxis: Lovenox Full code Surrogate decision maker: Pallavi, daughter: [phone] will require overnight hospital stay for close monitoring of liver enzymes and clinical response, which is not possible in a lesser acute setting. Quality Stroke Does the patient have a stroke diagnosis?: No VTE Prior VTE?: No VTE Risk Level:: Medical - moderate - high VTE Device Contraindication: Treatment Not Indicated VTE Drug Contraindication: N/A - Med Ordered
[2023-07-20] MEDS: ondansetron HCL 4 MG/2 ML VIAL IVPUSH (10:24)
[2023-07-20] MEDS: Lactulose 20 GM/30 ML SOLUTION PO (10:24)
--- NOTE | 2023-07-20 11:49 | MHC.CM.PN ---
PER MD ROUNDS PATIENT IS NOT MEDICALLY CLEARED FOR DC. CM WILL CONTINUE TO FOLLOW.
--- NOTE | 2023-07-20 14:53 | PC.NURSE ---
IV dated 07/14. Difficult stick as patient is terrified of needles and pulls arms away from needle. Dr. Rizvi ok'd to leave IV in 1 more day. Possible discharge tomorrow.
--- NOTE | 2023-07-20 15:16 | P.PNGI_ITS ---
Subjective Subjective Date of Service: 07/20/23 Interval History: Patient feels well he has no complaints passing gas and stool no melena or rectal bleeding moderate response to prednisone Critical Care Time (minutes): 0 Physical Exam 2 Vital Signs: Vital Signs: Last Vital Signs Temp 97.5 F 07/20/23 06:56 Pulse 58 07/20/23 06:56 Resp 18 07/20/23 06:56 BP 104/52 L 07/20/23 06:56 Pulse Ox 97 07/20/23 06:56 O2 Del Method Room Air 07/20/23 06:56 BMI result Body Mass Index 22.9 EXAM: GENERAL: The patient is jaundiced VITAL SIGNS:see workflow HEENT: Nonicteric sclerae, PERRLA, EOMI. Oropharynx clear. Moist mucous membranes. Conjunctivae appear well perfused. No thyroid mass. CHEST: Chest wall is nontender. HEART: Regular rate and rhythm without murmurs. LUNGS: Clear to auscultation bilaterally. ABDOMEN: Soft, positive bowel sounds, nontender, no organomegaly.no flank tenderness SKIN: No rash, no excessive bruising, petechiae, or purpura. NEUROLOGIC: Cranial nerves II-XII intact without motor/sensory deficit. Psych: normal affect Objective Data Labs 07/17/23 06:10 07/19/23 05:19 Labs: Laboratory Results - last 24 hr 07/20/23 05:35 Hold Purple Top SEE NOTE PT 15.7 H INR 1.3 H Total Bilirubin 7.0 H Direct Bilirubin 5.6 H AST 403 H ALT 204 H Alkaline Phosphatase 390 H Total Protein 6.1 L Albumin 2.1 L Microbiology Microbiology Results: Microbiology 07/15/23 Unknown Urine clean catch - Urine quig[place] top Urine Culture - Final No growth. Procedures Date of Service Date of Service: 07/20/23 Progress Note: A&P Assessment and plan (1) Acute hepatitis: Status: Acute (2) Cirrhosis: Status: Acute Plan 1/ Abn LFt suspected to be acute on chronic liver injury caused by alcohol with indirect markers raised such as GGT and AST>ALT. Improvement in INR and bili but AST/ALT remain high, a little more higher than might expect with alcoholic hepatitis. Hep C, B negative L[place] score at D#4 remains in poor response to steroid range . INR improvement is a good sign of improved synthetic function. PLAN: 1/ Recommend high protein diet 2/ Alcohol abstinence going forward 3/ stop prednisone 4/ liver bx to confirm dx and r/o secondary injury from DILI or other causes, on methimazole and statin, Time Spent With Patient Time: Total time managing care of this patient today ____ minutes. Quality Stroke Does the patient have a stroke diagnosis?: No VTE Prior VTE?: No VTE Risk Level:: Medical - moderate - high VTE Device Contraindication: Treatment Not Indicated VTE Drug Contraindication: N/A - Med Ordered
[2023-07-20 15:19] VITALS: BP 129/60; PULSE 58; RESP 18; TEMP 36.4; O2SAT 97
--- NOTE | 2023-07-20 15:55 | PC.NURSE ---
Johnsont called and updated with this policy writer sales.
[2023-07-20 19:46] VITALS: BP 134/63; PULSE 55; RESP 20; TEMP 36.1; O2SAT 97
[2023-07-20] MEDS: traZODone HCL 25 MG HALFTAB 75 MG PO (20:38)
[2023-07-21] VITALS (7 sets, daily range): BP systolic 106–145; BP diastolic 52–65; PULSE 51–66; RESP 16–18; TEMP 36–36.6; O2SAT 96–98
[2023-07-21] MEDS: Omeprazole 40 MG CAPSULE.DR PO (05:25)
[2023-07-21 06:04] LABS: INTERNATIONAL NORM RATIO 1.4 (0.9-1.1); Prothrombin Time 16.5 SEC (11.1-13.3)
[2023-07-21 06:19] LABS: Alanine Aminotransferase 215 U/L (0-40); Albumin Level 2.1 g/dL (3.5-5.0); Alkaline Phosphatase 423 U/L (39-117); Aspartate Amino Transferase 396 U/L (5-37); Bilirubin Direct 5.2 mg/dL (0.0-0.5); Bilirubin Total 6.5 mg/dL (0.0-1.0); Total Protein 6.1 g/dL (6.5-8.0)
[2023-07-21] MEDS: Thiamine HCL 100 MG TABLET PO (09:09)
[2023-07-21] MEDS: Multivitamin TABLET 1 TAB PO (09:09)
[2023-07-21] MEDS: Lactulose 20 GM/30 ML SOLUTION PO ×3 (09:09→20:33)
[2023-07-21] MEDS: 0.9 % Sodium Chloride Flush 3 ML SYRINGE IVFLUSH ×3 (09:10→20:33)
--- NOTE | 2023-07-21 10:17 | PC.NURSE ---
Pt daughter called, Pallavi, asking not to give info to sister (other daughter). Pt's is his own person and this development writer attempted to educate daughter, however Daughter belives her Dad, the Patient, is unable to make decisions himself.
--- NOTE | 2023-07-21 11:23 | HO.PM.IMPN ---
Subjective Subjective Date of Service: 07/21/23 Interval History: Seen and evaluated this morning tolerating diet and having regular bowel movements but complain of constipation Bili below 7 for first time Plan Liver Bx INR at 1.4 Review of Systems Review of Systems: Yes all other systems are reviewed and are negative Physical Exam Vital Signs: Vital Signs: Last Vital Signs Temp 97.9 F 07/21/23 07:06 Pulse 63 07/21/23 07:06 Resp 18 07/21/23 07:06 BP 145/65 H 07/21/23 07:06 Pulse Ox 97 07/21/23 07:06 O2 Del Method Room Air 07/21/23 07:06 BMI result Body Mass Index 22.9 Const: Other: Constitutional : Awake, interactive, not in distress, mild jaundice Neck : Normal inspection, Supple Cardiovascular : RRR, no JVP, no lower extremity edema Respiratory : good bilateral air entry, no crackles, wheezes or rhonchi Gastrointestinal: soft, lax, Normal bowel sounds, Non tender, no ascites Skin : Warm, Dry Neurological : Alert & oriented x3, No focal deficit Objective Data Active Medications [place] Butter/Zinc Oxide ([place] Butter/Zinc Oxide Supp.Rect) 1 supp [place] BID PRN PRN Reason: Hemorrhoids Lactulose (Lactulose 20 Gm/30 Ml Solution) 20 gm PO BID [facility] Last Admin: 07/21/23 09:09 Dose: 20 gm Documented By: SABRINA Lidocaine (Lidocaine 4 % Patch Adh..Patch) 1 patch TRANSDERMA DAILY [facility]; Protocol Last Admin: 07/21/23 09:14 Dose: Not Given Documented By: SABRINA Non-Admin Reason: Patient Refused Multivitamins/Vitamin C (Multivitamin Tablet) 1 tab PO DAILY [facility] Last Admin: 07/21/23 09:09 Dose: 1 tab Documented By: SABRINA Omeprazole (Omeprazole 40 Mg Capsule.Dr) 40 mg PO DAILY@0630 [facility] Last Admin: 07/21/23 05:25 Dose: 40 mg Documented By: MIHIR Ondansetron HCl (Ondansetron Hcl 4 Mg/2 Ml Vial) 4 mg IVPUSH Q8H PRN PRN Reason: Nausea and Vomiting Last Admin: 07/20/23 10:24 Dose: 4 mg Documented By: EDILMA Pharmacy Consult (Consult Rx Etoh Phenob Im/Po) 1 each MISCELLANE ONCE PRN; Protocol PRN Reason: Consult order Sodium Chloride (0.9 % Sodium Chloride Flush 3 Ml Syringe) 3 ml IVFLUSH QSHIFT [facility] Last Admin: 07/21/23 09:10 Dose: 3 ml Documented By: SABRINA Thiamine HCl (Thiamine Hcl 100 Mg Tablet) 100 mg PO DAILY [facility] Last Admin: 07/21/23 09:09 Dose: 100 mg Documented By: SABRINA Trazodone HCl (Trazodone Hcl 25 Mg Halftab) 75 mg PO BEDTIME [facility] Last Admin: 07/20/23 20:38 Dose: 75 mg Documented By: GABEQC Labs 07/17/23 06:10 07/19/23 05:19 Labs: Laboratory Results - last 24 hr 07/21/23 07/21/23 05:29 07:50 Hold Purple Top SEE NOTE PT 16.5 H INR 1.4 H Total Bilirubin 6.5 H Direct Bilirubin 5.2 H AST 396 H ALT 215 H Alkaline Phosphatase 423 H Total Protein 6.1 L Albumin 2.1 L Blood Type A Positive Antibody Screen NEGATIVE Assessment and Plan (1) Cirrhosis: Status: Acute (2) Acute hepatitis: Status: Acute (3) Alcohol abuse: Status: Acute Plan This is a 78-year-old male with pertinent history of hyperthyroidism, gastroesophageal reflux disease, mixed hyperlipidemia, alcohol use disorder who presents to the emergency department at the behest of PCP for evaluation of jaundice. # Acute hepatitis , likely alcoholic Mild improvement in INR and Bili but AST\ALT remains elevated Negative Hepatitis panel Mildly Elevated [id number] Alcohol abstinence reinforced. Pending PTEH level (Phosphatidylethanol) DC Prednisolone High protein diet Gastroenterology input appreciated, Dc Prednisone and get liver biopsy Plan for Liver Bx today Follow LFT\INR # Cirrhosis of liver Increase lactulose to tid with goal 2 BM daily Varices noted on imaging, would benefit from beta-cheli once pressure improves # Alcohol use disorder w high withdrawal risk He did not have withdrawal, denies any recent alcohol Continue thiamine. # Elevated INR INR 1.4 after 10 mg Vit K follow INR # Hyperthyroidism On methimazole. Obtain TSH # Mixed hyperlipidemia Hold statin DVT prophylaxis: Lovenox Full code Surrogate decision maker: Pallavi, daughter: [phone], to be contacted for any procedure or discharge plans will require overnight hospital stay for close monitoring of liver enzymes and clinical response pending liver biopsy, which is not possible in a lesser acute setting. Quality Stroke Does the patient have a stroke diagnosis?: No VTE Prior VTE?: No VTE Risk Level:: Medical - moderate - high VTE Device Contraindication: Treatment Not Indicated VTE Drug Contraindication: N/A - Med Ordered
[2023-07-21 13:04] LABS: Soluble Liver Ag Autoantibody <20.1 U (0.0-20.0)
[2023-07-21] MEDS: Lidocaine HCl 1 % MPF 5 ML VIAL 10 ML SUBCUT (13:39)
[2023-07-21] MEDS: Zolpidem Tartrate 5 MG TABLET PO (20:33)
[2023-07-22 04:00] VITALS: BP 123/59; PULSE 62; RESP 16; TEMP 36; O2SAT 98
[2023-07-22] MEDS: ondansetron HCL 4 MG/2 ML VIAL IVPUSH (04:09)
[2023-07-22] MEDS: Omeprazole 40 MG CAPSULE.DR PO (04:11)
[2023-07-22 06:43] LABS: Smooth Muscle Antibody <20 U (<20)
[2023-07-22 06:58] LABS: INTERNATIONAL NORM RATIO 1.3 (0.9-1.1); Prothrombin Time 16.4 SEC (11.1-13.3)
[2023-07-22 07:10] LABS: Alanine Aminotransferase 208 U/L (0-40); Albumin Level 2.1 g/dL (3.5-5.0); Alkaline Phosphatase 457 U/L (39-117); Aspartate Amino Transferase 380 U/L (5-37); Bilirubin Direct 5.5 mg/dL (0.0-0.5); Total Protein 6.1 g/dL (6.5-8.0)
[2023-07-22 07:26] VITALS: BP 133/63; PULSE 62; RESP 12; TEMP 36.7; O2SAT 92
[2023-07-22] MEDS: 0.9 % Sodium Chloride Flush 3 ML SYRINGE IVFLUSH (09:24)
[2023-07-22] MEDS: Multivitamin TABLET 1 TAB PO (09:25)
[2023-07-22] MEDS: Thiamine HCL 100 MG TABLET PO (09:25)
[2023-07-22] MEDS: Lactulose 20 GM/30 ML SOLUTION PO (09:25)
[2023-07-22] MEDS: Lidocaine 4 % Patch ADH..PATCH 1 PATCH TRANSDERMA (09:26)
--- NOTE | 2023-07-22 11:07 | MHC.CM.PN ---
Addendum entered by Lety Olivera RN 07/22/23 12:03: PER MD PATIENT IS MEDICALLY CLEARED FOR DC HOME SELF CARE, WILL FOLLOW UP WITH GI OUTPATIENT. CM MET WITH PATIENT VIA INHALATION THERAPY TEACHER. IMM DELIVERED. DAUGHTER WILL PROVIDE TRANSPORT HOME AT 2PM. RN AWARE. Original Note: EMR REVIEWED. PER MD ROUNDS PATIENT IS NOT MEDICALLY CLEAR FOR DC AT THIS TIME. HOSPITALIST TO DISCUSS W/ GI. CM WILL CONTINUE TO FOLLOW.
--- NOTE | 2023-07-22 11:14 | PM.DS ---
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 Patient admits use of multiple nips of cocktail every day. His last alcoholic drink was 1 month ago. Patient states that about a month ago he had some food in his stomach has been upset since. Initially he had diarrhea which was followed by constipation. He has been having generalized malaise and fatigability. Also has had poor appetite and he seems to have lost weight. Patient complains of generalized abdominal discomfort, constant, nonprogressive, nonradiating and without any relieving factors. Patient went to his PCP who sent the patient to the ER for evaluation as he appeared jaundiced. The daughter states that the patient does have history of liver disease which was told to him about a month ago and he was told to abstain from alcohol. No hematemesis, hematochezia or melena. No fever, chills, chest discomfort, palpitations, changes in urinary habits. In the emergency department, bilirubin found to be 9.6 and AST ALT found to be elevated. hospital course: Patient was admitted for liver cirrhosis complicated by acute hepatitis, likely due to alcohol use. He was treated with high-protein diet. LFTs improved somewhat and remained stable. Was seen by Gastroenterology recommended liver biopsy which was performed on 07/21/2023, results are pending and should be followed up outpatient. Was started on lactulose for a goal of 2 bowel movements per day. For hypothyroidism was continued on Tapazole. For hyperlipidemia can continue on statin. Patient is medically stable to be discharged home to follow up closely with Gastroenterology, he should maintain a high-protein diet, lactulose for 2 bowel movements per day, avoid alcohol. Time Attestation Discharge Coordination Time (in mins): 35 Quality: Safe Use of Opioids Does Pt have an Active Cancer Diagnosis on the Problem List?: No Quality: Stroke Does the patient have a stroke diagnosis?: No Physical Exam Vital Signs: Vital Signs: Last Vital Signs Temp 98.1 F 07/22/23 07:26 Pulse 62 07/22/23 07:26 Resp 12 07/22/23 07:26 BP 133/63 07/22/23 07:26 Pulse Ox 92 07/22/23 07:26 O2 Del Method Room Air 07/22/23 07:26 BMI result Body Mass Index 22.9 General: AO X 3, no acute distress, jaundiced Resp: CTA bilateral, no accessory muscles used CVS: S1,S2,RRR GI: soft, non tender, non distended Neuro: motor grossly intact, alert Psych: appropriate affect, appropriate insight DS: Data Data Completed and Pending Pending studies at discharge: Pending at discharge 07/21/23 13:15 Surgical Path [Surgical] [PTH] Routine Labs on day of discharge: Laboratory Results - last 24 hr 07/15/23 07/22/23 20:26 06:24 Hold Purple Top SEE NOTE PT 16.4 H INR 1.3 H Total Bilirubin 7.0 H Direct Bilirubin 5.5 H AST 380 H ALT 208 H Alkaline Phosphatase 457 H Total Protein 6.1 L Albumin 2.1 L Soluble Liver Antigen <20.1 Anti-Smooth Muscle Ab <20 Discharge Plan Discharge Anticipated Discharge Date/Time: 07/22/23 11:12 Patient Disposition: Home, Self-Care Discharge Diagnosis: cirrhosis with acute hepatitis Referrals: Kd Huffman MD [Primary Care Provider] - 1 Week Leesa Argueta MD [Physician] - 1 Week Discharge Medications: New lactulose 20 gram/30 mL Solution 20 g PO TID PRN (Reason: constipation) Qty: 1200 0RF Continued Centrum Adult 50 Plus 80 mcg Tablet,Chewable 1 tab PO DAILY omeprazole 20 mg capsule,delayed release(DR/EC) 20 mg PO DAILY Qty: 30 5RF rosuvastatin 20 mg tablet 20 mg PO DAILY Discharge Orders: Discharge Order (Routine); Ordered 07/22/23 Ordered By: Antoni Acosta Diet: Advance to usual diet Activity on Discharge: As tolerated Stand Alone Forms: Patient Portal Discharge page Care Plan Goals: recovery Health Concerns: liver cirrhosis Plan of Treatment: lactulose for 2 bm per day, follow up pathology results with gi, no alcohol Assessment: see above
[2023-07-22 13:09] LABS: Anti Nuclear Antibody Screen NEGATIVE (NEGATIVE)
[2023-07-24 10:45] LABS: Phosphatidylethanol 16:0-18:1 NEGATIVE; Phosphatidylethanol 16:0-18:2 NEGATIVE
== END 2023-07-22 14:04 | disposition home or self-care (01) | DRG 432 ==
LOC: HO.ED 07-15 03:26 → HO.EDOVER 07-15 04:20 → HO.S3 07-16 12:01
PROVIDERS: Internal Medicine Gastroenterology; Physician Assistant Medical; Student in an Organized Health Care Education/Training Program; Admitting Provider Student in an Organized Health Care Education/Training Program; Emergency Provider Emergency Medicine Emergency Medical Services; PCP Internal Medicine; Visit Provider Internal Medicine
PROC: 0FB03ZX Excision of Liver, Percutaneous Approach, Diagnostic (ICD-10-PCS; principal; 2023-07-21 11:30)
DX: K70.10 Alcoholic hepatitis without ascites (principal); K72.00 Acute and subacute hepatic failure without coma; D68.4 Acquired coagulation factor deficiency; F10.10 Alcohol abuse, uncomplicated; E78.2 Mixed hyperlipidemia; E05.90 Thyrotoxicosis, unspecified without thyrotoxic crisis or storm; K70.30 Alcoholic cirrhosis of liver without ascites; K21.9 Gastro-esophageal reflux disease without esophagitis; Z79.899 Other long term (current) drug therapy
CPT/HCPCS: 36415; 47000; 74177; 76942; 80048; 80053; 80076; 80143; 80321; 81001; 82103; 82140; 82550; 82728; 82784; 82977; 83520; 83690; 83735; 84443; 85025; 85027; 85610; 86015; 86038; 86704; 86706; 86803; 86850; 86900; 86901; 87086; 87340; 87389; 88307; 88313; 88341; 88342; 99152; 99153; 99285; C9113; J1650; J2405; J2920; J3411; Q9967

== ENCOUNTER 2023-07-15 04:14 | Outpatient (BNV) | payer MEDICARE, SELFPAY | END 2023-07-21 12:30 | PROVIDERS: Admitting Provider Student in an Organized Health Care Education/Training Program; Emergency Provider Emergency Medicine Emergency Medical Services; PCP Internal Medicine; Visit Provider Physician Assistant Surgical | DX: R94.5 Abnormal results of liver function studies (principal) | CPT/HCPCS: 47000; 76942 ==

== ENCOUNTER → 2023-07-15 04:14 | Outpatient (BNV) | payer MEDICARE, SELFPAY | PROVIDERS: Admitting Provider Student in an Organized Health Care Education/Training Program; Emergency Provider Emergency Medicine Emergency Medical Services; PCP Internal Medicine; Visit Provider Internal Medicine Gastroenterology | DX: B17.9 Acute viral hepatitis, unspecified (principal); K70.31 Alcoholic cirrhosis of liver with ascites | CPT/HCPCS: 99223; 99232 ==

== ENCOUNTER → 2023-07-15 04:14 | Outpatient (BNV) | payer MEDICARE, SELFPAY | PROVIDERS: Admitting Provider Student in an Organized Health Care Education/Training Program; Emergency Provider Emergency Medicine Emergency Medical Services; PCP Internal Medicine; Visit Provider Student in an Organized Health Care Education/Training Program | DX: K70.31 Alcoholic cirrhosis of liver with ascites (principal); B17.9 Acute viral hepatitis, unspecified; F10.10 Alcohol abuse, uncomplicated | CPT/HCPCS: 99223; 99232; 99233; 99239; 99499 ==